=== PATIENT | male | born 1970 | race Caucasian/White ===

== ENCOUNTER 2016-10-25 14:51 | Inpatient (IN) | payer OTHER ==
[~2016-10-25] VITALS: Ht 170.2 cm; Wt 65.2 kg
[2016-10-25] MEDS ORDERED: LEVAQUIN 750MG / 150ML D5W IV STA (15:00)
[2016-10-25] MEDS ORDERED: ALBUT/IPRATROP 3MG/0.5MG NEB 3 ML VIAL INH STA (15:00)
[2016-10-25] MEDS ORDERED: SODIUM CHLORIDE 0.9% 1000ML 1,000 ML IV STA (15:00)
[2016-10-25] MEDS ORDERED: PIPERACILLIN/TAZOBACTAM 4.5 GM/100ML D5W IV STA (15:00)
--- NOTE | 2016-10-25 15:27 | DIAGNOSTIC IMAGING REPORT ---
SINGLE VIEW CHEST CLINICAL HISTORY: Fever. FINDINGS: An AP, portable, upright chest radiograph is obtained. No prior studies are available for comparison at the time of dictation. The examination is degraded by portable technique and patient rotation. A tracheostomy is in place. Trace pneumomediastinum is suspected. The cardiomediastinal silhouette is unremarkable. There are patchy airspace opacities at both lung bases. No large pleural effusion or pneumothorax is seen. The skeletal structures appear osteopenic. The bony thorax is grossly intact. A ventriculoperitoneal shunt catheter is identified. IMPRESSION: 1. A tracheostomy is in place. 2. There are patchy airspace opacities present at both lung bases. Correlate clinically for evidence of pneumonia/aspiration pneumonitis. Radiographic follow-up to resolution is recommended. 3. Pneumomediastinum is suspected.. Electronically signed by: Yadiel May M.D. 10/25/2016 3:26 PM Dictated Date/Time: 10/25/2016 3:24 PM
[2016-10-25 15:39] LABS: HEMATOCRIT 46.2 % (42-52); MEAN CELL VOLUME 89.4 fL (80-100); MEAN CORPUSCULAR HEMOGLOBIN 29.4 pg (25-34); MEAN CORPUSCULAR HGB CONC 32.9 g/dl (32-36); MEAN PLATELET VOLUME 12.5 fL (7.4-10.4); PLATELET COUNT 470 K/uL (130-400); RED BLOOD COUNT 5.17 M/uL (4.7-6.1); WHITE BLOOD COUNT 22.71 K/uL (4.8-10.8)
[2016-10-25 15:56] LABS: ALT/SGPT 319 U/L (12-78); AST/SGOT 62 U/L (15-37); BLOOD UREA NITROGEN 14 mg/dl (7-18); BUN/CREATININE RATIO 17.7 (10-20); CALCIUM 8.9 mg/dl (8.5-10.1); CARBON DIOXIDE 32 mmol/L (21-32); CHLORIDE 102 mmol/L (98-107); GLUCOSE 181 mg/dl (70-99); PARTIAL THROMBOPLASTIN RATIO 1.1; POTASSIUM 4.9 mmol/L (3.5-5.1); PROTHROMBIN TIME (PATIENT) 10.5 SECONDS (9.0-12.0); SODIUM 139 mmol/L (136-145)
[2016-10-25 16:03] LABS: ALKALINE PHOSPHATASE 194 U/L (45-117); CKMB/CK RATIO 2.7 (0-3.0)
[2016-10-25 16:18] LABS: ISTAT ARTERIAL BLOOD GAS HCO3 21 meq/L (19-24); ISTAT ARTERIAL BLOOD GAS PCO2 39 mmHg (35-46); ISTAT ARTERIAL BLOOD GAS PO2 148 mmHg (80-95); ISTAT ARTERIAL BLOOD GAS pH 7.33 (7.35-7.45); ISTAT CARBON DIOXIDE 22 mEq/l (24-31)
[2016-10-25 16:24] LABS: COMPLETE YES; EOSINOPHIL % 0.9 %; LYMPH ABS # 1.82 K/uL (1.2-3.4); MYELOCYTE % 0.9 %; NEUTROPHILS % 50.4 %; VARIANT LYM ABS # 7.63 K/uL; VARIANT LYMPHOCYTE % 33.6 %
--- NOTE | 2016-10-25 16:35 | EMERGENCY ROOM VISIT NOTE ---
History Report prepared by Mily: Manju Song Under the Supervision of: Dr. Waqsa Mccormick D.O. 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 The history is limited secondary to recent subarachnoid hemorrhage and tracheostomy. The patient came to the ED via ambulance from the [facility]. EMS reports that the patient recently had a traumatic head injury with a subarachnoid hemorrhage. 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 He has a tracheostomy in place, but the alf reported that they do not have the supplies to maintain it. EMS reports that the alf has been unable to suction the patient's tracheostomy. He has a history of mucous plugs. The patient also has a PEG tube in place. Source of History: EMS History Limited By: other (recent subarachnoid hemorrhage, tracheostomy) Onset: CHIROPRACTOR ASSISTANT Position: chest Quality: other (respiratory distress) Timing: worsening Review of Systems See HPI for pertinent positives & negatives. ROS limited secondary to recent subarachnoid hemorrhage and tracheostomy. Past Medical & Surgical Medical Problems: (1) History of subarachnoid hemorrhage (2) Sepsis Family History No pertinent family history Social History Housing Status: other (alf) Current/Historical Medications Scheduled Amantadine Hcl (Amantadine Hcl), 100 MG PEG DAILY Chlorhexidine Gluconate (Peridex Oral Soln), 15 ML MT BID Dantrolene Sodium (Dantrium), 25 MG PO DAILY Famotidine (Pepcid), 20 MG PEG DAILY Nutritional Supplements (Boost), 1 CAN PEG Q4 Nystatin (Topical) ([facility]), 1 APPLN TOP DAILY Polyethylene Glycol 3350 (Peg 3350), 1 DOSE PEG DAILY Senna (Senokot), 17.2 TAB PEG BID Scheduled PRN Acetaminophen (Tylenol), 650 MG PEG QID PRN for Pain Magnesium Hydroxide (Milk Of Magnesia), 30 ML PO DAILY PRN for PRN Allergies Coded Allergies: Cephalexin (Unverified Allergy, Unknown, ., 10/25/16) Tomato (Unverified Allergy, Unknown, ., 10/25/16) Physical Exam Vital Signs Date Time Temp Pulse Resp B/P (MAP) Pulse Ox O2 Delivery O2 Flow Rate FiO2 10/25/16 17:15 130 20 120/78 100 Trach Collar 10/25/16 16:16 137 22 129/107 100 Trach Collar 10/25/16 15:32 95 Trach Collar 13.0 10/25/16 15:28 38.2 132 32 125/84 95 Trach Collar 13.0 10/25/16 15:20 102 10/25/16 15:02 144 Physical Exam CONSTITUTIONAL/VITAL SIGNS: Reviewed / noted above. GENERAL: Non-toxic in appearance. INTEGUMENTARY: Warm, dry, and [place]. HEAD: Normocephalic. EYES: without scleral icterus or trauma. ENT/OROPHARYNX: clear and moist, tracheostomy in place. LYMPHADENOPATHY/NECK: Is supple without lymphadenopathy or meningismus. RESPIRATORY: Absent breath sounds in left lung, scattered wheezing right lung, moderate increased work of breathing. CARDIOVASCULAR: Regular rate and rhythm. GI/ABDOMEN: Soft and nontender. Peg tube in place. No organomegaly or pulsatile mass. No rebound or guarding. Normal bowel sounds. EXTREMITIES: Warm and well perfused. BACK: No CVA tenderness. NEUROLOGICAL: Awake, alert, nonverbal, no obvious purposeful movement of the extremities, does not follow commands. PSYCHIATRIC: normal affect. MUSCULOSKELETAL: Normally developed with good muscle tone. Medical Decision & Procedures ER Provider Diagnostic Interpretation: Radiology results as stated below per my review and radiologist interpretation: SINGLE VIEW CHEST FINDINGS: An AP, portable, upright chest radiograph is obtained. No prior studies are available for comparison at the time of dictation. The examination is degraded by portable technique and patient rotation. A tracheostomy is in place. Trace pneumomediastinum is suspected. The cardiomediastinal silhouette is unremarkable. There are patchy airspace opacities at both lung bases. No large pleural effusion or pneumothorax is seen. The skeletal structures appear osteopenic. The bony thorax is grossly intact. A ventriculoperitoneal shunt catheter is identified. IMPRESSION: 1. A tracheostomy is in place. 2. There are patchy airspace opacities present at both lung bases. Correlate clinically for evidence of pneumonia/aspiration pneumonitis. Radiographic follow-up to resolution is recommended. 3. Pneumomediastinum is suspected.. Electronically signed by: Yadiel May M.D. 10/25/2016 3:26 PM Dictated Date/Time: 10/25/2016 3:24 PM Laboratory Results 10/25/16 15:25 Red Blood Count 5.17, Mean Corpuscular Volume 89.4, Mean Corpuscular Hemoglobin 29.4, Mean Corpuscular Hemoglobin Concent 32.9, Mean Platelet Volume 12.5 10/25/16 15:25 Test 10/25/16 15:25 10/25/16 15:47 10/25/16 16:02 White Blood Count 22.71 K/uL (4.8-10.8) Red Blood Count 5.17 M/uL (4.7-6.1) Hemoglobin 15.2 g/dL (14.0-18.0) Hematocrit 46.2 % (42-52) Mean Corpuscular Volume 89.4 fL (80-100) Mean Corpuscular Hemoglobin 29.4 pg (25-34) Mean Corpuscular Hemoglobin Concent 32.9 g/dl (32-36) Platelet Count 470 K/uL (130-400) Mean Platelet Volume 12.5 fL (7.4-10.4) RDW Standard Deviation 47.2 fL (36.4-46.3) RDW Coefficient of Variation 14.4 % (11.5-14.5) Neutrophils % (Manual) 50.4 % Lymphocytes % (Manual) 8.0 % Variant Lymphocytes % (manual) 33.6 % Monocytes % (Manual) 6.2 % Eosinophils % (Manual) 0.9 % Myelocytes % 0.9 % Neutrophils # (Manual) 11.45 K/uL (1.4-6.5) Total Absolute Neutrophils 11.45 K/uL (1.4-6.5) Lymphocytes # (Manual) 1.82 K/uL (1.2-3.4) Absolute Variant Lymphocytes 7.63 K/uL Total Absolute Lymphocytes 9.45 K/uL (1.2-3.4) Monocytes # (Manual) 1.41 K/uL (0.11-0.59) Eosinophils # (Manual) 0.20 K/uL (0-0.5) Myelocytes # 0.20 K/uL (0-0) Red Blood Cell Morphology Unremarkable Prothrombin Time 10.5 SECONDS (9.0-12.0) Prothromb Time International Ratio 1.0 (0.9-1.1) Activated Partial Thromboplast Time 29.6 SECONDS (21.0-31.0) Partial Thromboplastin Ratio 1.1 Anion Gap 5.0 mmol/L (3-11) Estimated GFR () 124.2 Estimated GFR (Non- 107.1 BUN/Creatinine Ratio 17.7 (10-20) Calcium Level 8.9 mg/dl (8.5-10.1) Total Bilirubin 0.8 mg/dl (0.2-1) Direct Bilirubin 0.2 mg/dl (0-0.2) Aspartate Amino Transf (AST/SGOT) 62 U/L (15-37) Alanine Aminotransferase (ALT/SGPT) 319 U/L (12-78) Alkaline Phosphatase 194 U/L (45-117) Total Creatine Kinase 85 U/L (39-308) Creatine Kinase MB 2.3 ng/ml (0.5-3.6) Creatine Kinase MB Ratio 2.7 (0-3.0) Troponin I 0.254 ng/ml (0-0.045) Total Protein 8.6 gm/dl (6.4-8.2) Albumin 3.6 gm/dl (3.4-5.0) Lipase 131 U/L (73-393) Bedside Blood Gas pH (LAB) 7.33 (7.35-7.45) Bedside Blood Gas pCO2 (LAB) 39 mmHg (35-46) Bedside Blood Gas pO2 (LAB) 148 mmHg (80-95) Bedside Blood Gas HCO3 (LAB) 21 meq/L (19-24) Bedside Blood Gas Total CO2 22 mEq/l (24-31) Bedside Blood Gas Base Excess (LAB) -5.0 meq/L (-9-1.8) Bedside Blood Gas O2 Saturation 99.0 % (90-95) Laboratory results as stated above per my review. Medications Administered Medications (Trade) Dose Ordered Sig/Madina Route Start Time Stop Time Status Last Admin Dose Admin Sodium Chloride 1,000 ml @ 999 mls/hr Q1H1M STAT IV 10/25/16 15:00 10/25/16 16:00 DC 10/25/16 16:42 999 MLS/HR Levofloxacin (Levaquin / D5W) 750 mg NOW STAT IV 10/25/16 15:00 10/25/16 15:04 DC 10/25/16 16:43 750 MG Piperacillin Sod/ Tazobactam Sod (Zosyn Iv) 4.5 gm NOW STAT IV 10/25/16 15:00 10/25/16 15:04 DC 10/25/16 16:42 4.5 GM Sodium Chloride 2,000 ml @ 999 mls/hr Q2H1M STAT IV 10/25/16 16:42 10/25/16 18:42 DC 10/25/16 16:49 999 MLS/HR Procedure Fiberoptic tracheostomy evaluation: Because of some clinical findings to suggest tracheostomy stenosis, a fiberoptic scope was placed through the tracheostomy that revealed narrowing of the tracheostomy is self related to mucous accumulation. Distal to the tracheostomy the jayce was visualized and the bilateral bronchus revealed evidence of some whitish substance present with inspiration and exhalation. Tracheostomy removal and replacement This was performed due to challenges with the original tracheostomy as it was becoming clogged with mucus. A 4.0 Shiley was placed. This is similar in size to the original tracheostomy tube although a different brand. This changeover occurred without difficulty. ABG analysis: Reveals a slight metabolic acidosis. Ventilation is adequate. Oxygenation is adequate on supplemental oxygenation. ECG Indication: SOB/dyspnea Rate (beats per minute): 156 Rhythm: sinus tachycardia Findings: no acute ischemic change, no ectopy ED Course 1454: Previous medical records were reviewed. The patient was evaluated in room C5. A complete history and physical examination was performed. 1500: Ordered Zosyn 4.5 gm IV, Levofloxacin 750 mg IV, DuoNeb 3 ml INH, Sodium Chloride 1000 ml @ 999 mls/hr IV 1510: The nurse informed me that the patient was evaluated by the respiratory team. The respiratory team is unable to suction the patient's trach. He is going to be moved to B1 in case he needs ventilation. 1526: I performed a fiberoptic tracheostomy evaluation and a tracheostomy replacement and removal at this time. Please refer to the procedure note above for further details. 1547: I reassessed the patient at this time. He is resting comfortably. 1630: On reevaluation, the patient is resting comfortably. The patient will be evaluated for further management and care. 1631: Discussed the patient's case with Dr. Tha SIDDIQUI. The patient will be evaluated for further treatment and disposition. Medical Decision The differential was considered includes acute myocardial infarction, acute coronary syndrome, myocarditis, pericarditis, pericardial effusions/tamponade, esophageal perforation, pulmonary embolism, pneumonia, pneumothorax, cardiomyopathy, congestive heart, anemia , COPD/asthma exacerbation. This is a 46-year-old male who presents to the ED with a chief complaint of shortness of breath. The patient has a history of subarachnoid hemorrhage in the past. He has a tracheostomy as well as a PEG tube. 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 The patient was sent from [facility]. They apparently received him to their facility couple of days ago. The patient's vital signs reveal temperature of 38.2 axillary. There is evidence of hypoxia without supplemental oxygen with oxygen saturations in the 80s. The patient appears to be having moderate respiratory distress on his initial evaluation. His left lung. Diminished compared to the right. Chest x- ray reveals bilateral pneumonia. Fiberoptic evaluation of his tracheostomy reveals narrowing of the tracheostomy tube itself. There is a moderate amount of buildup on the side mckeon that are mostly occluding the tracheostomy. This was replaced with a similar sized tube. The trachea otherwise appeared to be normal distal to the tracheostomy tube. There is some purulent discharge from the bilateral bronchi in the lower aspects that was visible on fiberoptic assessment of the trachea. White blood cell count is 22,000. There is a slight elevation of the transaminase. ABG reveals a metabolic acidosis with adequate ventilation and oxygenation. Troponin was a little elevated. Lactate was elevated. The patient was treated with IV fluids, DuoNeb treatment as well as IV Levaquin and IV Zosyn. EMS reported that the initial heart rate upon their arrival was in the 90-100 range. They treated the patient with DuoNeb nebulizers and the patient was given a nebulizer here as well. His EKG shows a sinus tachycardia rate of 155. His heart rate is improving with time during his ED stay. I suspect his tachycardia was somewhat related to the albuterol. The patient was seen by the hospitalist service for further inpatient evaluation and care. The patient was given more than 30cc/kg of NSS in the first 3 hours of his stay. Consults Time Called: 1627 Consulting Physician: Dr. Tha SIDDIQUI Returned Call: 1631 Discussed the patient's case with Dr. Tha SIDDIQUI. The patient will be evaluated for further treatment and disposition. Impression Primary Impression: Pneumonia Additional Impressions: Fever Hypoxia Elevated troponin Critical Care I have personally spent greater than 35 minutes of critical care time in the direct management of this patient. This includes bedside care, interpretation of diagnostic studies, and testing, discussion with consultants, patient, and family members, and other required patient management activities. This 35 minutes is in excess of all separately billable procedures. Scribe Attestation The scribe's documentation has been prepared under my direction and personally reviewed by me in its entirety. I confirm that the note above accurately reflects all work, treatment, procedures, and medical decision making performed by me. Departure Information Dispostion Being Evaluated By Hospitalist Patient Instructions Asthma - [facility], COPD - [facility], Croup - [facility], My [facility] Problem Qualifiers Primary Impression: Pneumonia Pneumonia type: due to unspecified organism Laterality: bilateral Lung location: lower lobe of lung Qualified Codes: J18.9 - Pneumonia, unspecified organism Additional Impressions: Fever Fever type: unspecified Qualified Codes: R50.9 - Fever, unspecified
[2016-10-25] MEDS ORDERED: SODIUM CHLORIDE 0.9% 1000ML 2,000 ML IV STA (16:42)
[2016-10-25] MEDS ORDERED: AMAN100C18 PEG (16:59)
[2016-10-25] MEDS ORDERED: PRDXLUD MT (17:01)
[2016-10-25] MEDS ORDERED: DANT25CA PO (17:02)
[2016-10-25] MEDS ORDERED: FAMO20TA11 PEG (17:03)
[2016-10-25] MEDS ORDERED: POLYPOW PEG (17:05)
[2016-10-25] MEDS ORDERED: SENN-61 PEG (17:06)
[2016-10-25] MEDS ORDERED: NYST100016 TOP (17:13)
[2016-10-25] MEDS ORDERED: NUTR-7 PEG (17:13)
[2016-10-25] MEDS ORDERED: MOML PO (17:13)
[2016-10-25] MEDS ORDERED: ACET-1175 PEG (17:13)
[2016-10-25] MEDS ORDERED: ONDANSETRON INJ 2 MG/ML 2 ML VIAL IV PRN (17:30)
[2016-10-25] MEDS ORDERED: ACETAMINOPHEN 325 MG TAB PO PRN (17:30)
[2016-10-25 17:34] VITALS: O2SAT 100; Ht 170.2 cm; Wt 65.2 kg
--- NOTE | 2016-10-25 17:56 | History and Physical ---
History & Physical Date & Time of Service: Oct 25, 2016 at 17:42 Chief Complaint: Inability To Suction Trach Primary Care Physician: Mathew VALERA History of Present Illness Source: patient Pt is a 46-year old male who [facility] the ER from [facility] for worsening sob/respiratory distress that was noticed this afternoon. Hx is limited due to hx of subarachnoid hemorrhage and tracheostomy. Pt is from [facility] and has significant cognitive impairment. Pt is nonverbal and has tracheostomy in place for unknown reason as well. From EMS records, halfway has been unable to provide adequate trach care including suctioning. Pt has a history of mucous plugs and also has a PEG tube in place. Upon interview, pt is follows commands with right hand, able to squeeze hand and give thumbs up. Pt not able to utilize left side of body. Past Medical/Surgical History Medical Problems: (1) History of subarachnoid hemorrhage Status: Chronic Family History No pertinent family history Social History Smoking Status: Unknown if Ever Smoked Allergies Coded Allergies: Cephalexin (Unverified Allergy, Unknown, ., 10/25/16) Tomato (Unverified Allergy, Unknown, ., 10/25/16) Home Medications Scheduled Amantadine Hcl (Amantadine Hcl), 100 MG PEG DAILY Chlorhexidine Gluconate (Peridex Oral Soln), 15 ML MT BID Dantrolene Sodium (Dantrium), 25 MG PO DAILY Famotidine (Pepcid), 20 MG PEG DAILY Nutritional Supplements (Boost), 1 CAN PEG Q4 Nystatin (Topical) (Nyamyc), 1 APPLN TOP DAILY Polyethylene Glycol 3350 (Peg 3350), 1 DOSE PEG DAILY Senna (Senokot), 17.2 TAB PEG BID Scheduled PRN Acetaminophen (Tylenol), 650 MG PEG QID PRN for Pain Magnesium Hydroxide (Milk Of Magnesia), 30 ML PO DAILY PRN for PRN Review of Systems Unable to obtain due to cognitive decline Physical Exam Vital Signs Date Time Temp Pulse Resp B/P (MAP) Pulse Ox O2 Delivery O2 Flow Rate FiO2 10/25/16 17:40 36.6 10/25/16 17:15 130 20 120/78 100 Trach Collar 10/25/16 16:16 137 22 129/107 100 Trach Collar 10/25/16 15:32 95 Trach Collar 13.0 10/25/16 15:28 38.2 132 32 125/84 95 Trach Collar 13.0 10/25/16 15:20 102 10/25/16 15:02 144 General Appearance: WD/WN, no apparent distress Head: normocephalic, atraumatic Eyes: normal inspection, PERRL, EOMI, sclerae normal Neck: supple, thyroid normal, + pertinent finding (trach in place) Respiratory/Chest: chest non-tender, no respiratory distress, + decreased breath sounds, + wheezing Cardiovascular: no edema, no gallop, no JVD, + tachycardia Abdomen/GI: normal bowel sounds, non tender, soft, no organomegaly Back: normal inspection, no CVA tenderness, no muscle spasm Neurologic/Psych: alert, normal mood/affect, + motor weakness (left sided weakness) Skin: normal color, warm/dry Diagnostics Laboratory Results Results Past 24 Hours Test 10/25/16 15:25 10/25/16 16:00 10/25/16 16:02 Range/Units White Blood Count 22.71 4.8-10.8 K/uL Red Blood Count 5.17 4.7-6.1 M/uL Hemoglobin 15.2 14.0-18.0 g/dL Hematocrit 46.2 42-52 % Mean Corpuscular Volume 89.4 80-100 fL Mean Corpuscular Hemoglobin 29.4 25-34 pg Mean Corpuscular Hemoglobin Concent 32.9 32-36 g/dl Platelet Count 470 130-400 K/uL Mean Platelet Volume 12.5 7.4-10.4 fL RDW Standard Deviation 47.2 36.4-46.3 fL RDW Coefficient of Variation 14.4 11.5-14.5 % Neutrophils % (Manual) 50.4 % Lymphocytes % (Manual) 8.0 % Variant Lymphocytes % (manual) 33.6 % Monocytes % (Manual) 6.2 % Eosinophils % (Manual) 0.9 % Myelocytes % 0.9 % Neutrophils # (Manual) 11.45 1.4-6.5 K/uL Total Absolute Neutrophils 11.45 1.4-6.5 K/uL Lymphocytes # (Manual) 1.82 1.2-3.4 K/uL Absolute Variant Lymphocytes 7.63 K/uL Total Absolute Lymphocytes 9.45 1.2-3.4 K/uL Monocytes # (Manual) 1.41 0.11-0.59 K/uL Eosinophils # (Manual) 0.20 0-0.5 K/uL Myelocytes # 0.20 0-0 K/uL Red Blood Cell Morphology Unremarkable Prothrombin Time 10.5 9.0-12.0 SECONDS Prothromb Time International Ratio 1.0 0.9-1.1 Activated Partial Thromboplast Time 29.6 21.0-31.0 SECONDS Partial Thromboplastin Ratio 1.1 Sodium Level 139 136-145 mmol/L Potassium Level 4.9 3.5-5.1 mmol/L Chloride Level 102 98-107 mmol/L Carbon Dioxide Level 32 21-32 mmol/L Anion Gap 5.0 3-11 mmol/L Blood Urea Nitrogen 14 7-18 mg/dl Creatinine 0.80 0.60-1.40 mg/dl Estimated GFR () 124.2 Estimated GFR (Non- 107.1 BUN/Creatinine Ratio 17.7 10-20 Random Glucose 181 70-99 mg/dl Calcium Level 8.9 8.5-10.1 mg/dl Total Bilirubin 0.8 0.2-1 mg/dl Direct Bilirubin 0.2 0-0.2 mg/dl Aspartate Amino Transf (AST/SGOT) 62 15-37 U/L Alanine Aminotransferase (ALT/SGPT) 319 12-78 U/L Alkaline Phosphatase 194 45-117 U/L Total Creatine Kinase 85 39-308 U/L Creatine Kinase MB 2.3 0.5-3.6 ng/ml Creatine Kinase MB Ratio 2.7 0-3.0 Troponin I 0.254 0-0.045 ng/ml Total Protein 8.6 6.4-8.2 gm/dl Albumin 3.6 3.4-5.0 gm/dl Lipase 131 73-393 U/L Lactic Acid Level 6.5 0.4-2.0 mmol/L Bedside Blood Gas pH (LAB) 7.33 7.35-7.45 Bedside Blood Gas pCO2 (LAB) 39 35-46 mmHg Bedside Blood Gas pO2 (LAB) 148 80-95 mmHg Bedside Blood Gas HCO3 (LAB) 21 19-24 meq/L Bedside Blood Gas Total CO2 22 24-31 mEq/l Bedside Blood Gas Base Excess (LAB) -5.0 -9-1.8 meq/L Bedside Blood Gas O2 Saturation 99.0 90-95 % Microbiology Results 10/25/16 Blood Culture, Received Pending 10/25/16 Blood Culture, Received Pending Impression Assessment and Plan Pt is a 46 yo male with hx of SAH, tracheostomy and PEG tube who is nonverba; with significant cognitive decline who presents with worsening sob and noted to be in sepsis Sepsis likely from pneumonia as evidenced by CXR. Pt currently on trach collar. Will utilize zosyn, levaquin and vanc and obtain sputum and blood cx. Inc lactate and WBC and febrile in ER. Will utilize xopenex/atrovent due to tachycardia. Will consult pulm for further recs. PEG tube care, consult [employer], boost via PEG TUBE, will need to obtain halfway records Chronic spasticity cont dantrolene Elev trop likely from sepsis, cont to trend, no ischemic changes on EKG Hx of SAH stable Pt is FULL CODE VTE Prophylaxis VTE Risk Assessment Done? Y/N: Yes Risk Level: Moderate
[2016-10-25] MEDS ORDERED: MAGNESIUM HYDROXIDE SUSP 30 ML UDC PO PRN (18:00)
[2016-10-25] MEDS ORDERED: ACETAMINOPHEN SOLN 650MG/20.3 ML UDC PEG PRN (18:00)
[2016-10-25 18:53] VITALS: BP 126/75; PULSE 137; TEMP 37.3; O2SAT 99
[2016-10-25] MEDS ORDERED: SODIUM CHLORIDE 0.9% 1000ML 1,000 ML IV SCH (19:30)
[2016-10-25 19:40] VITALS: BP 118/75; PULSE 122; TEMP 37.2; O2SAT 99
[2016-10-25] MEDS: PATIENT'S HEIGHT AND/OR WEIGHT NEEDED SCH ×2 (19:45→23:45)
[2016-10-25] MEDS ORDERED: VANCOMYCIN CONSULT ACTIVE PRN (19:45)
[2016-10-25] MEDS ORDERED: VANCOMYCIN INJ 1,650 MG in SODIUM CHLORIDE 0.9% 500ML 500 ML IV SCH (20:00)
[2016-10-25] MEDS: CHLORHEXIDINE GLUCONATE 0.12% 15 ML UDP MT SCH (20:59)
[2016-10-25] MEDS ORDERED: LEVALBUTEROL/IPRATROPIUM NEB INH SCH (21:00)
[2016-10-25] MEDS: IPRATROPIUM BROMIDE NEB SOLN 0.02% 2.5 ML VIAL INH SCH (21:00)
[2016-10-25] MEDS: LEVALBUTEROL 1.25MG/0.5ML NEB INH SCH (21:00)
[2016-10-25] MEDS: BOOST VANILLA PEG SCH ×4 (21:09→23:48)
[2016-10-25] MEDS: HEPARIN SOD 5000 UNIT/0.5 ML CARP SQ SCH (21:16)
--- NOTE | 2016-10-25 21:29 | Pharmacy Progress Note ---
Pharmacy Antibiotic Consult Date of Service: Oct 25, 2016. Pharmacy Dosing Scope Pharmacy is consulted to initiate vancomycin IV dosing therapy, order appropriate labs and adjust drug dose/frequency. Subjective The patient is a 46 year old male admitted on Oct 25, 2016 at 17:19 Pt is a 46 yo male with hx of SAH, tracheostomy and PEG tube who is nonverbal; with significant cognitive decline who presents with worsening sob and noted to be in sepsis. Sepsis likely from pneumonia as evidenced by CXR. Pt currently on trach collar. Objective Weight (Kilograms): 65.800 Lab Results (24hrs): Test 10/25/16 15:25 10/25/16 15:47 10/25/16 16:00 10/25/16 16:02 White Blood Count 22.71 K/uL (4.8-10.8) Red Blood Count 5.17 M/uL (4.7-6.1) Hemoglobin 15.2 g/dL (14.0-18.0) Hematocrit 46.2 % (42-52) Mean Corpuscular Volume 89.4 fL (80-100) Mean Corpuscular Hemoglobin 29.4 pg (25-34) Mean Corpuscular Hemoglobin Concent 32.9 g/dl (32-36) Platelet Count 470 K/uL (130-400) Mean Platelet Volume 12.5 fL (7.4-10.4) RDW Standard Deviation 47.2 fL (36.4-46.3) RDW Coefficient of Variation 14.4 % (11.5-14.5) Neutrophils % (Manual) 50.4 % Lymphocytes % (Manual) 8.0 % Variant Lymphocytes % (manual) 33.6 % Monocytes % (Manual) 6.2 % Eosinophils % (Manual) 0.9 % Myelocytes % 0.9 % Neutrophils # (Manual) 11.45 K/uL (1.4-6.5) Total Absolute Neutrophils 11.45 K/uL (1.4-6.5) Lymphocytes # (Manual) 1.82 K/uL (1.2-3.4) Absolute Variant Lymphocytes 7.63 K/uL Total Absolute Lymphocytes 9.45 K/uL (1.2-3.4) Monocytes # (Manual) 1.41 K/uL (0.11-0.59) Eosinophils # (Manual) 0.20 K/uL (0-0.5) Myelocytes # 0.20 K/uL (0-0) Red Blood Cell Morphology Unremarkable Prothrombin Time 10.5 SECONDS (9.0-12.0) Prothromb Time International Ratio 1.0 (0.9-1.1) Activated Partial Thromboplast Time 29.6 SECONDS (21.0-31.0) Partial Thromboplastin Ratio 1.1 Sodium Level 139 mmol/L (136-145) Potassium Level 4.9 mmol/L (3.5-5.1) Chloride Level 102 mmol/L (98-107) Carbon Dioxide Level 32 mmol/L (21-32) Anion Gap 5.0 mmol/L (3-11) Blood Urea Nitrogen 14 mg/dl (7-18) Creatinine 0.80 mg/dl (0.60-1.40) Estimated GFR () 124.2 Estimated GFR (Non- 107.1 BUN/Creatinine Ratio 17.7 (10-20) Random Glucose 181 mg/dl (70-99) Calcium Level 8.9 mg/dl (8.5-10.1) Total Bilirubin 0.8 mg/dl (0.2-1) Direct Bilirubin 0.2 mg/dl (0-0.2) Aspartate Amino Transf (AST/SGOT) 62 U/L (15-37) Alanine Aminotransferase (ALT/SGPT) 319 U/L (12-78) Alkaline Phosphatase 194 U/L (45-117) Total Creatine Kinase 85 U/L (39-308) Creatine Kinase MB 2.3 ng/ml (0.5-3.6) Creatine Kinase MB Ratio 2.7 (0-3.0) Troponin I 0.254 ng/ml (0-0.045) Total Protein 8.6 gm/dl (6.4-8.2) Albumin 3.6 gm/dl (3.4-5.0) Lipase 131 U/L (73-393) Procalcitonin 0.08 ng/ml (0-0.5) Lactic Acid Level 6.5 mmol/L (0.4-2.0) Bedside Blood Gas pH (LAB) 7.33 (7.35-7.45) Bedside Blood Gas pCO2 (LAB) 39 mmHg (35-46) Bedside Blood Gas pO2 (LAB) 148 mmHg (80-95) Bedside Blood Gas HCO3 (LAB) 21 meq/L (19-24) Bedside Blood Gas Total CO2 22 mEq/l (24-31) Bedside Blood Gas Base Excess (LAB) -5.0 meq/L (-9-1.8) Bedside Blood Gas O2 Saturation 99.0 % (90-95) Test 10/25/16 19:18 Lactic Acid Level 1.3 mmol/L (0.4-2.0) Micro Results: Blood cx x 2 are pending/ Recent Pertinent Medications Zosyn 4.5gm IV x 1 and Levaquin 750mg IV x1 in ER. Assessment & Plan Pt is a 46 yo male with hx of SAH, tracheostomy and PEG tube who is nonverbal; with significant cognitive decline who presents with worsening sob and noted to be in sepsis. Sepsis likely from pneumonia as evidenced by CXR. Pt currently on trach collar. Vancomycin: Loading dose: 1650 mg IV X 1 dose (~25mg/kg) then: 1100 mg IV every 10 hours. Goal trough level estimate: between 15 - 20 mcg/mL. Peak and trough or random level has been ordered for: 10/27 prior to 0200 dose. Pt also ordered Levaquin 750mg IV q 24 hrs. Pharmacy will continue to follow and will adjust dose/frequency as necessary. Thank you
[2016-10-25 23:25] VITALS: BP 129/88; PULSE 117; TEMP 37.6; O2SAT 100
[2016-10-25] MEDS ORDERED: METOPROLOL TARTRATE 25 MG TAB PO STA (23:27)
[2016-10-25] MEDS ORDERED: ASPIRIN 81 MG CHEW PO STA (23:27)
[2016-10-25] MEDS: SODIUM CHLORIDE 0.9% 1000ML 1,000 ML IV SCH (23:48)
[2016-10-25 23:59] VITALS: O2SAT 100
[2016-10-26] VITALS (13 sets, daily range): BP systolic 101–111; BP diastolic 59–73; PULSE 67–115; TEMP 36.6–37.7; O2SAT 98–100
[2016-10-26] MEDS: PATIENT'S HEIGHT AND/OR WEIGHT NEEDED SCH ×2 (01:13→03:06)
[2016-10-26] MEDS: IPRATROPIUM BROMIDE NEB SOLN 0.02% 2.5 ML VIAL INH SCH ×4 (01:42→19:14)
[2016-10-26] MEDS: LEVALBUTEROL 1.25MG/0.5ML NEB INH SCH ×4 (01:42→19:14)
[2016-10-26] MEDS: BOOST VANILLA PEG SCH ×8 (03:32→21:29)
[2016-10-26] MEDS: VANCOMYCIN INJ 1,100 MG in SODIUM CHLORIDE 0.9% 250ML 250 ML IV SCH ×2 (05:21→15:35)
[2016-10-26] MEDS: HEPARIN SOD 5000 UNIT/0.5 ML CARP SQ SCH ×3 (05:25→22:00)
[2016-10-26 06:59] LABS: BASO % 0.3 %; BASO ABS # 0.04 K/uL (0-0.2); COMPLETE YES; EOS % 0.7 %; HEMATOCRIT 36.9 % (42-52); IG% 0.2 %; LYMPH % 18.7 %; LYMPH ABS # 2.26 K/uL (1.2-3.4); MEAN CELL VOLUME 87.6 fL (80-100); MEAN CORPUSCULAR HEMOGLOBIN 28.3 pg (25-34); MEAN CORPUSCULAR HGB CONC 32.2 g/dl (32-36); MEAN PLATELET VOLUME 11.9 fL (7.4-10.4); MONO % 11.4 %; NEUT % 68.7 %; PLATELET COUNT 256 K/uL (130-400); RED BLOOD COUNT 4.21 M/uL (4.7-6.1); WHITE BLOOD COUNT 12.08 K/uL (4.8-10.8)
[2016-10-26 07:04] LABS: ALT/SGPT 200 U/L (12-78); AST/SGOT 45 U/L (15-37); BLOOD UREA NITROGEN 10 mg/dl (7-18); BUN/CREATININE RATIO 20.9 (10-20); CARBON DIOXIDE 25 mmol/L (21-32); CHLORIDE 109 mmol/L (98-107); CREATININE 0.47 mg/dl (0.60-1.40); GLUCOSE 94 mg/dl (70-99); POTASSIUM 4.1 mmol/L (3.5-5.1); SODIUM 143 mmol/L (136-145)
[2016-10-26 07:14] LABS: ALB/GLOB RATIO 0.7 (0.9-2); ALKALINE PHOSPHATASE 130 U/L (45-117)
[2016-10-26] MEDS: FAMOTIDINE 20 MG TAB OG SCH (07:40)
[2016-10-26] MEDS: METOPROLOL TARTRATE 25 MG TAB PO SCH ×2 (07:40→21:16)
[2016-10-26] MEDS: CHLORHEXIDINE GLUCONATE 0.12% 15 ML UDP MT SCH ×2 (07:40→21:17)
[2016-10-26] MEDS: ASPIRIN 81 MG CHEW PO SCH (07:40)
[2016-10-26] MEDS: AMANTADINE HCL 100 MG CAP PO SCH (07:41)
[2016-10-26] MEDS: DANTROLENE SODIUM 25 MG CAP PO SCH (07:41)
[2016-10-26] MEDS: SODIUM CHLORIDE 0.9% 1000ML 1,000 ML IV SCH ×3 (07:42→23:06)
[2016-10-26] MEDS: POLYETHYLENE (MIRALAX) 17 GM PACK PEG SCH (07:42)
[2016-10-26] MEDS ORDERED: BOOST VANILLA PO SCH ×2 (11:00)
--- NOTE | 2016-10-26 12:21 | Pulmonary Consultation ---
History General Date of Service: Oct 26, 2016. Stated Complaint: Sepsis HPI The patient is a 46 year old male who presents to [facility] with complaints of Sepsis. The patient's primary care provider is Mathew VALERA. Patient is from skilled nursing, accompanied by 2 police officers They do not know anything about his medical history Patient is non verbal and cannot provide history By H&P it appears that he was sent to ER for proper trach care His trach was replaced in the ER with no:4 cuffed trach Review of Systems unable to obtain Past Medical History Past Medical History: h/o SAH s/p trach and PEG Family History No pertinent family history unable to obtain Social History skilled nursing inmate Smoking Status: Unknown if Ever Smoked Allergies Coded Allergies: Cephalexin (Unverified Allergy, Unknown, ., 10/25/16) Tomato (Unverified Allergy, Unknown, ., 10/25/16) Current Medications Reported Home Medications Medications Dose Route/Sig Max Daily Dose Days Date Category Dose Instructions Boost (Nutritional Supplements) 1 Liq Liq 1 Can PEG Q4 10/25/16 Reported GIVEN THRU A PUMP AT [facility] (Nystatin (Topical)) 100,000 Unit/Gm Pow 1 Appln TOP DAILY 10/25/16 Reported Milk Of Magnesia (Magnesium Hydroxide) 30 Ml Susp 30 Ml PO DAILY PRN 10/25/16 Reported Tylenol (Acetaminophen) 325 Mg Tab 650 Mg PEG QID PRN 10/25/16 Reported Senokot (Senna) 8.6 Mg Tab 17.2 Tab PEG BID 10/25/16 Reported Peg 3350 (Polyethylene Glycol 3350) 1 Pow Pow 1 Dose PEG DAILY 10/25/16 Reported Pepcid (Famotidine) 20 Mg Tab 20 Mg PEG DAILY 10/25/16 Reported Dantrium (Dantrolene Sodium) 25 Mg Cap 25 Mg PO DAILY 10/25/16 Reported Peridex Oral Soln (Chlorhexidine Gluconate) 480 Ml Soln 15 Ml MT BID 10/25/16 Reported Amantadine Hcl (Amantadine HCl) 100 Mg Cap 100 Mg PEG DAILY 10/25/16 Reported Physical Physical Exam Vital Signs: Date Time Temp Pulse Resp B/P (MAP) Pulse Ox O2 Delivery O2 Flow Rate FiO2 10/26/16 12:07 36.6 96 20 101/69 (80) 100 Trach Collar 10/26/16 08:00 98 Humidified Air 8.0 40 Trach Collar 10/26/16 07:25 67 20 100 Trach Collar 9.0 10/26/16 07:13 37.0 107 19 104/69 (81) 100 Trach Collar 8.0 10/26/16 04:00 98 Trach Collar 40 10/26/16 02:52 37.7 103 21 104/69 (81) 98 Trach Collar 8.0 40 10/26/16 01:42 96 20 100 Trach Collar 9.0 10/25/16 23:59 100 Trach Collar 40 10/25/16 23:25 37.6 117 20 129/88 (102) 100 Trach Collar 40 10/25/16 19:40 37.2 122 26 118/75 (89) 99 Trach Collar 10.0 40 10/25/16 18:53 37.3 137 24 126/75 (92) 99 Trach Collar 35 10/25/16 18:33 100 10/25/16 18:08 130 22 100 Trach Collar 10/25/16 17:40 36.6 10/25/16 17:34 100 Trach Collar 13.0 10/25/16 17:15 130 20 120/78 100 Trach Collar 10/25/16 16:16 137 22 129/107 100 Trach Collar 10/25/16 15:32 95 Trach Collar 13.0 10/25/16 15:28 38.2 132 32 125/84 95 Trach Collar 13.0 10/25/16 15:20 102 10/25/16 15:02 144 thin built chronically ill appearing Eyes: PERRLA, NO DISCHARGE ENT: NORMAL NASAL EXAM, NORMAL MOUTH EXAM Neck: other (trach) Respiratory: rhonchi Cardiovasular: REGULAR RATE/RHYTHM, NORMAL S1S2, NO MURMUR Abdomen: NORMAL BOWEL SOUNDS, NO REBOUND, other (peg) Upper Extremities: other (contracted left upper arm and leg) Lower Extremities: other (contracted left lower leg) Neuro: other (left side paralyzed, s/p trach and peg, blinks eyes and follows simple commands) Diagnostics Labs Results Past 24 Hours Test 10/25/16 15:25 10/25/16 15:47 10/25/16 16:00 10/25/16 16:02 Range/Units White Blood Count 22.71 4.8-10.8 K/uL Red Blood Count 5.17 4.7-6.1 M/uL Hemoglobin 15.2 14.0-18.0 g/dL Hematocrit 46.2 42-52 % Mean Corpuscular Volume 89.4 80-100 fL Mean Corpuscular Hemoglobin 29.4 25-34 pg Mean Corpuscular Hemoglobin Concent 32.9 32-36 g/dl Platelet Count 470 130-400 K/uL Mean Platelet Volume 12.5 7.4-10.4 fL RDW Standard Deviation 47.2 36.4-46.3 fL RDW Coefficient of Variation 14.4 11.5-14.5 % Neutrophils % (Manual) 50.4 % Lymphocytes % (Manual) 8.0 % Variant Lymphocytes % (manual) 33.6 % Monocytes % (Manual) 6.2 % Eosinophils % (Manual) 0.9 % Myelocytes % 0.9 % Neutrophils # (Manual) 11.45 1.4-6.5 K/uL Total Absolute Neutrophils 11.45 1.4-6.5 K/uL Lymphocytes # (Manual) 1.82 1.2-3.4 K/uL Absolute Variant Lymphocytes 7.63 K/uL Total Absolute Lymphocytes 9.45 1.2-3.4 K/uL Monocytes # (Manual) 1.41 0.11-0.59 K/uL Eosinophils # (Manual) 0.20 0-0.5 K/uL Myelocytes # 0.20 0-0 K/uL Red Blood Cell Morphology Unremarkable Prothrombin Time 10.5 9.0-12.0 SECONDS Prothromb Time International Ratio 1.0 0.9-1.1 Activated Partial Thromboplast Time 29.6 21.0-31.0 SECONDS Partial Thromboplastin Ratio 1.1 Sodium Level 139 136-145 mmol/L Potassium Level 4.9 3.5-5.1 mmol/L Chloride Level 102 98-107 mmol/L Carbon Dioxide Level 32 21-32 mmol/L Anion Gap 5.0 3-11 mmol/L Blood Urea Nitrogen 14 7-18 mg/dl Creatinine 0.80 0.60-1.40 mg/dl Estimated GFR () 124.2 Estimated GFR (Non- 107.1 BUN/Creatinine Ratio 17.7 10-20 Random Glucose 181 70-99 mg/dl Calcium Level 8.9 8.5-10.1 mg/dl Total Bilirubin 0.8 0.2-1 mg/dl Direct Bilirubin 0.2 0-0.2 mg/dl Aspartate Amino Transf (AST/SGOT) 62 15-37 U/L Alanine Aminotransferase (ALT/SGPT) 319 12-78 U/L Alkaline Phosphatase 194 45-117 U/L Total Creatine Kinase 85 39-308 U/L Creatine Kinase MB 2.3 0.5-3.6 ng/ml Creatine Kinase MB Ratio 2.7 0-3.0 Troponin I 0.254 0-0.045 ng/ml Total Protein 8.6 6.4-8.2 gm/dl Albumin 3.6 3.4-5.0 gm/dl Lipase 131 73-393 U/L Procalcitonin 0.08 0-0.5 ng/ml Lactic Acid Level 6.5 0.4-2.0 mmol/L Bedside Blood Gas pH (LAB) 7.33 7.35-7.45 Bedside Blood Gas pCO2 (LAB) 39 35-46 mmHg Bedside Blood Gas pO2 (LAB) 148 80-95 mmHg Bedside Blood Gas HCO3 (LAB) 21 19-24 meq/L Bedside Blood Gas Total CO2 22 24-31 mEq/l Bedside Blood Gas Base Excess (LAB) -5.0 -9-1.8 meq/L Bedside Blood Gas O2 Saturation 99.0 90-95 % Test 10/25/16 19:18 10/25/16 22:01 10/26/16 06:12 Range/Units Lactic Acid Level 1.3 0.4-2.0 mmol/L Troponin I 4.370 3.690 0-0.045 ng/ml White Blood Count 12.08 4.8-10.8 K/uL Red Blood Count 4.21 4.7-6.1 M/uL Hemoglobin 11.9 14.0-18.0 g/dL Hematocrit 36.9 42-52 % Mean Corpuscular Volume 87.6 80-100 fL Mean Corpuscular Hemoglobin 28.3 25-34 pg Mean Corpuscular Hemoglobin Concent 32.2 32-36 g/dl Platelet Count 256 130-400 K/uL Mean Platelet Volume 11.9 7.4-10.4 fL Neutrophils (%) (Auto) 68.7 % Lymphocytes (%) (Auto) 18.7 % Monocytes (%) (Auto) 11.4 % Eosinophils (%) (Auto) 0.7 % Basophils (%) (Auto) 0.3 % Neutrophils # (Auto) 8.29 1.4-6.5 K/uL Lymphocytes # (Auto) 2.26 1.2-3.4 K/uL Monocytes # (Auto) 1.38 0.11-0.59 K/uL Eosinophils # (Auto) 0.09 0-0.5 K/uL Basophils # (Auto) 0.04 0-0.2 K/uL RDW Standard Deviation 47.1 36.4-46.3 fL RDW Coefficient of Variation 14.7 11.5-14.5 % Immature Granulocyte % (Auto) 0.2 % Immature Granulocyte # (Auto) 0.02 0.00-0.02 K/uL Sodium Level 143 136-145 mmol/L Potassium Level 4.1 3.5-5.1 mmol/L Chloride Level 109 98-107 mmol/L Carbon Dioxide Level 25 21-32 mmol/L Anion Gap 9.0 3-11 mmol/L Blood Urea Nitrogen 10 7-18 mg/dl Creatinine 0.47 0.60-1.40 mg/dl Est Creatinine Clear Calc Drug Dose 183.7 ml/min Estimated GFR () > 150.0 Estimated GFR (Non- 133.3 BUN/Creatinine Ratio 20.9 10-20 Random Glucose 94 70-99 mg/dl Calcium Level 8.0 8.5-10.1 mg/dl Total Bilirubin 1.0 0.2-1 mg/dl Aspartate Amino Transf (AST/SGOT) 45 15-37 U/L Alanine Aminotransferase (ALT/SGPT) 200 12-78 U/L Alkaline Phosphatase 130 45-117 U/L Total Protein 6.3 6.4-8.2 gm/dl Albumin 2.6 3.4-5.0 gm/dl Globulin 3.7 2.5-4.0 gm/dl Albumin/Globulin Ratio 0.7 0.9-2 Microbiology Results 10/25/16 Blood Culture, Received Pending 10/25/16 Blood Culture, Received Pending 10/25/16 MRSA DNA Surveillance Screen - Final, Complete Specimen Negative for MRSA by DNA Probe 10/25/16 Gram Stain - Final, Resulted 10/25/16 Sputum Culture - Preliminary, Resulted PIN-POINT GROWTH PRESENT, REINCUBATING. Impression Assessment and Plan (1) Pneumonia Status: Acute Assessment & Plan: f/u sputum for culture aspiration precautions MRSA swab -ve d/c vanco continue zosyn and levaquin (2) History of subarachnoid hemorrhage Status: Chronic (3) Hypoxia Status: Acute Assessment & Plan: trach needs to be deflated trach care q 4 hrs if trach ges plugging up too frequently, then recommend to switch to no: 6 atleast o2 supplementation janae sats 90% and above (4) Sepsis continue present abx sepsis due to pneumonia
[2016-10-26] MEDS: LEVOFLOXACIN / D5W 750 MG in PREMIXED IN D5W 150 ML IV SCH (15:35)
--- NOTE | 2016-10-26 15:37 | Progress Note ---
Subjective Date of Service: Oct 26, 2016. Subjective Pt evaluation today including: conversation w/ patient, physical exam, lab review, review of studies, conversation w/ corporate consultant, review of inpatient medication list Pain: denies pain PO Intake: PEG tube, NPO Voiding: no voiding problems no issues since admission, improving slowly patient non-verbal appreciate consultation from pulmonary Problem List Medical Problems: (1) Elevated troponin Status: Acute (2) Fever Status: Acute (3) History of subarachnoid hemorrhage Status: Chronic (4) Hypoxia Status: Acute (5) Pneumonia Status: Acute Review of Systems cannot review in detail, non-verbal All Other Systems: Reviewed and Negative Medications Current Inpatient Medications Medications (Trade) Dose Ordered Sig/Madina Route Start Time Stop Time Status Last Admin Dose Admin Heparin Sodium (Porcine) (Heparin Sq 5000 Unit/0.5ml) 5,000 unit Q8 SQ 10/25/16 22:00 11/24/16 21:59 10/26/16 13:17 5,000 UNIT Ondansetron HCl (Zofran Inj) 4 mg Q6H PRN IV 10/25/16 17:30 11/24/16 17:29 Levofloxacin 750 mg/Prmx 150 ml @ 100 mls/hr DAILY@1600 IV 10/26/16 16:00 11/01/16 15:59 Vancomycin HCl 1100 mg/Sodium Chloride 272 ml @ 125 mls/hr Q10H IV 10/26/16 06:00 11/01/16 20:59 10/26/16 05:21 125 MLS/HR Acetaminophen (Tylenol Soln) 650 mg QID PRN PEG 10/25/16 18:00 11/24/16 17:59 Amantadine HCl (Symmetrel Cap) 100 mg DAILY PO 10/26/16 09:00 11/25/16 08:59 10/26/16 07:41 100 MG Chlorhexidine Gluconate (Peridex Oral Soln 15ML Udp) 15 ml BID MT 10/25/16 21:00 11/24/16 20:59 10/26/16 07:40 15 ML Dantrolene Sodium (Dantrium Cap) 25 mg DAILY PO 10/26/16 09:00 11/25/16 08:59 10/26/16 07:41 25 MG Famotidine (Pepcid Tab) 20 mg DAILY OG 10/26/16 09:00 11/25/16 08:59 10/26/16 07:40 20 MG Magnesium Hydroxide (Milk Of Magnesia Susp) 30 ml DAILY PRN PO 10/25/16 18:00 11/24/16 17:59 Polyethylene (Miralax Powder Packet) 17 gm DAILY PEG 10/26/16 09:00 11/25/16 08:59 10/26/16 07:42 17 GM Ipratropium [place] (Atrovent 0.02% 0.5MG/2.5ML Neb) 0.5 mg Q6R INH 10/25/16 21:00 11/24/16 20:59 10/26/16 14:21 0.5 MG Levalbuterol (Xopenex 1.25MG/ 0.5ML Neb) 1.25 mg Q6R INH 10/25/16 21:00 11/24/16 20:59 10/26/16 14:21 1.25 MG Vancomycin HCl (Consult) 1 ea UD PRN N/A 10/25/16 19:45 11/24/16 19:44 Aspirin (Aspirin Chew) 81 mg QAM PO 10/26/16 09:00 11/25/16 08:59 10/26/16 07:40 81 MG Metoprolol Tartrate (Lopressor Tab) 12.5 mg BID PO 10/26/16 09:00 11/25/16 08:59 10/26/16 07:40 12.5 MG Sodium Chloride 1,000 ml @ 125 mls/hr Q8H IV 10/25/16 23:30 11/24/16 23:29 10/26/16 07:42 125 MLS/HR Enteral Nutritional Formula (Boost) 1 can UD PO 10/26/16 11:00 11/25/16 10:59 Objective Vital Signs Date Time Temp Pulse Resp B/P (MAP) Pulse Ox O2 Delivery O2 Flow Rate FiO2 10/26/16 14:21 102 20 98 Trach Collar 9.0 10/26/16 12:07 36.6 96 20 101/69 (80) 100 Trach Collar 10/26/16 12:00 Humidified Air 8.0 40 Trach Collar 10/26/16 08:00 98 Humidified Air 8.0 40 Trach Collar 10/26/16 07:25 67 20 100 Trach Collar 9.0 10/26/16 07:13 37.0 107 19 104/69 (81) 100 Trach Collar 8.0 10/26/16 04:00 98 Trach Collar 40 10/26/16 02:52 37.7 103 21 104/69 (81) 98 Trach Collar 8.0 40 10/26/16 01:42 96 20 100 Trach Collar 9.0 10/25/16 23:59 100 Trach Collar 40 10/25/16 23:25 37.6 117 20 129/88 (102) 100 Trach Collar 40 10/25/16 19:40 37.2 122 26 118/75 (89) 99 Trach Collar 10.0 40 10/25/16 18:53 37.3 137 24 126/75 (92) 99 Trach Collar 35 10/25/16 18:33 100 10/25/16 18:08 130 22 100 Trach Collar 10/25/16 17:40 36.6 10/25/16 17:34 100 Trach Collar 13.0 10/25/16 17:15 130 20 120/78 100 Trach Collar 10/25/16 16:16 137 22 129/107 100 Trach Collar 10/25/16 15:32 95 Trach Collar 13.0 10/25/16 15:28 38.2 132 32 125/84 95 Trach Collar 13.0 Physical Exam General Appearance: no apparent distress, + thin Neck: supple, no adenopathy, no JVD, + pertinent finding (trach #[address], secretions) Respiratory/Chest: chest non-tender, no respiratory distress, no accessory muscle use, + rhonchi (bilaterally) Cardiovascular: no edema, no gallop, no JVD, no murmur, + tachycardia (regular rhythm) Abdomen: normal bowel sounds, non tender, soft, no organomegaly, + pertinent finding (PEG tube) Extremities: normal range of motion, non-tender, normal inspection, no pedal edema, no calf tenderness Neurologic/Psychiatric: electron beam welder II-XII nml as tested, no motor/sensory deficits, alert, normal mood/affect, oriented x 3 Skin: normal color, warm/dry, no rash Laboratory Results Last 24 Hours Test 10/25/16 15:47 10/25/16 16:00 10/25/16 16:02 10/25/16 19:18 Procalcitonin 0.08 ng/ml Lactic Acid Level 6.5 mmol/L 1.3 mmol/L Bedside Blood Gas pH (LAB) 7.33 Bedside Blood Gas pCO2 (LAB) 39 mmHg Bedside Blood Gas pO2 (LAB) 148 mmHg Bedside Blood Gas HCO3 (LAB) 21 meq/L Bedside Blood Gas Total CO2 22 mEq/l Bedside Blood Gas Base Excess (LAB) -5.0 meq/L Bedside Blood Gas O2 Saturation 99.0 % Test 10/25/16 22:01 10/26/16 06:12 10/26/16 14:10 Troponin I 4.370 ng/ml 3.690 ng/ml 2.620 ng/ml White Blood Count 12.08 K/uL Red Blood Count 4.21 M/uL Hemoglobin 11.9 g/dL Hematocrit 36.9 % Mean Corpuscular Volume 87.6 fL Mean Corpuscular Hemoglobin 28.3 pg Mean Corpuscular Hemoglobin Concent 32.2 g/dl Platelet Count 256 K/uL Mean Platelet Volume 11.9 fL Neutrophils (%) (Auto) 68.7 % Lymphocytes (%) (Auto) 18.7 % Monocytes (%) (Auto) 11.4 % Eosinophils (%) (Auto) 0.7 % Basophils (%) (Auto) 0.3 % Neutrophils # (Auto) 8.29 K/uL Lymphocytes # (Auto) 2.26 K/uL Monocytes # (Auto) 1.38 K/uL Eosinophils # (Auto) 0.09 K/uL Basophils # (Auto) 0.04 K/uL RDW Standard Deviation 47.1 fL RDW Coefficient of Variation 14.7 % Immature Granulocyte % (Auto) 0.2 % Immature Granulocyte # (Auto) 0.02 K/uL Sodium Level 143 mmol/L Potassium Level 4.1 mmol/L Chloride Level 109 mmol/L Carbon Dioxide Level 25 mmol/L Anion Gap 9.0 mmol/L Blood Urea Nitrogen 10 mg/dl Creatinine 0.47 mg/dl Est Creatinine Clear Calc Drug Dose 183.7 ml/min Estimated GFR () > 150.0 Estimated GFR (Non- 133.3 BUN/Creatinine Ratio 20.9 Random Glucose 94 mg/dl Calcium Level 8.0 mg/dl Total Bilirubin 1.0 mg/dl Aspartate Amino Transf (AST/SGOT) 45 U/L Alanine Aminotransferase (ALT/SGPT) 200 U/L Alkaline Phosphatase 130 U/L Total Protein 6.3 gm/dl Albumin 2.6 gm/dl Globulin 3.7 gm/dl Albumin/Globulin Ratio 0.7 Assessment and Plan Pt is a 46 yo male with hx of SAH, tracheostomy and PEG tube who is nonverbal; with significant cognitive decline who presents with worsening sob and noted to be in sepsis, apparently issues at [facility] with being able to suction, proper trach care Sepsis from pneumonia: initially given Vanco, Zosyn, Levaquin, will d/c Vanco with negative MRSA swab new tracheostomy placed, #4, may need to consider larger size if trach continues to get clogged tracheostomy care, suctioning follow up blood cultures afebrile since admission, WBC down to 12 from 22, improving slowly appreciate pulmonology consult Elevated troponin, NSTEMI vs demand ischemia: cannot report any chest pain multiple EKG without any signs of infarction, no real ischemia d/w Dr. Aguirre, will check echo, treat medically continue metoprolol and aspirin PEG tube care, consult servomechanism assembler, boost via PEG TUBE, will need to obtain longterm records Chronic spasticity cont dantrolene Hx of SAH stable Pt is FULL CODE prior to return to [facility], should discuss with physician at [facility] to make sure they are capable of caring for the tracheostomy, otherwise he will only continue to return with pneumonia
--- NOTE | 2016-10-26 22:11 | CARDIOLOGY CONSULTATION ---
DATE OF CONSULTATION: 10/26/2016 Mr. Alvarez is a 46-year-old male admitted yesterday with respiratory failure, presumed pneumonia, and presumed sepsis. The patient's troponin was elevated, and therefore, this consultation was ordered. Unfortunately, the patient's history is only obtainable through chart review. The patient is nonverbal from his subarachnoid hemorrhage which occurred in the past. He has a tracheostomy and PEG tube in place. Apparently, the patient developed acute shortness of breath while in the nursing home. He does have a history of mucus plugging and poor tracheostomy care. Also, a chest x-ray suggested possibility of a pneumonia and he was febrile suggesting the possibility of a sepsis syndrome. The patient is able to communicate with head nods and hand squeezes. He denies chest discomfort. Also denies a prior cardiac history. PAST MEDICAL HISTORY: 1. History of subarachnoid hemorrhage. 2. Chronic respiratory failure -- tracheostomy in place. 3. Nonverbal. 4. PEG tube in place. MEDICATIONS: 1. Lopressor 12.5 mg b.i.d. 2. Aspirin 81 mg per day. 3. Heparin 5000 units subq. 8 hours. 4. Atrovent nebulizer q. 6 hours. 5. Xopenex nebulizer q. 6 hours. 6. Vancomycin 1.1 gram IV q. 10 hours. 7. Levofloxacin 750 mg IV daily. ALLERGIES: 1. KEFLEX. 2. TOMATOES. SOCIAL HISTORY: Unobtainable. FAMILY HISTORY: Unobtainable. REVIEW OF SYSTEMS: Unobtainable. PHYSICAL EXAMINATION: GENERAL: He is a well-developed, well-nourished white male lying supine in bed without complaints. VITAL SIGNS: Blood pressure is 104/70 with a regular pulse of 90. Respiratory rate is 18. The patient is afebrile at 37.0 degrees Celsius. Saturations 100% on 8 liters per trach collar. HEENT: Negative. NECK: Supple with full carotid upstrokes. No obvious bruits. Jugular venous pressure is difficult to assess. Tracheostomy is noted. CARDIOVASCULAR: Reveals a regular rhythm with normal S1 and S2. No S3, S4 or murmurs are noted. LUNGS: Note coarse breath sounds throughout, but no rales, rhonchi or wheezes. ABDOMEN: Soft without bruits. PEG tube is in place. EXTREMITIES: Reveal intact radial artery pulses bilaterally. There is no peripheral edema. DATA: CBC notes hemoglobin of 11.9, hematocrit 36.9, white count 12.0, platelet count 256,000. Electrolytes note sodium of 143, potassium 4.1, chloride 109, bicarb 25, BUN 10, creatinine 0.7, glucose 94. Troponin I level is mildly elevated at 0.254 with followup values of 4.37 and 3.69. CK is 85 with an MB fraction of 2.3. First 2 EKGs note sinus tachycardia. Second EKGs also note sinus rhythm but with early repolarization changes, most pronounced in the lateral leads. Chest x-ray notes tracheostomy and raises the possibility of airspace opacities at the lung bases. A pneumomediastinum is also suspected. do all operator notes sinus rhythm. IMPRESSION: Mr. Alvarez was admitted with respiratory failure from a presumed pneumonia with a sepsis-type syndrome. His elevated troponin may simply reflect his poor clinical state at the time of presentation. There are no ischemic EKG changes; however, the possibility of a mild pericarditis is entertained as he now demonstrates some EKG changes consistent with a pericarditis-type picture. Clearly, an echocardiogram is indicated. PLAN: 1. Agree with initiation of metoprolol tartrate and aspirin. 2. Check echocardiogram. 3. Further recommendations depending on his clinical course. GOPAL
[2016-10-27] VITALS (10 sets, daily range): BP systolic 100–143; BP diastolic 65–74; PULSE 87–116; TEMP 36.4–37.5; O2SAT 88–100
[2016-10-27] MEDS: VANCOMYCIN INJ 1,100 MG in SODIUM CHLORIDE 0.9% 250ML 250 ML IV SCH (01:45)
[2016-10-27] MEDS: IPRATROPIUM BROMIDE NEB SOLN 0.02% 2.5 ML VIAL INH SCH ×4 (02:01→19:34)
[2016-10-27] MEDS: LEVALBUTEROL 1.25MG/0.5ML NEB INH SCH ×4 (02:01→19:34)
[2016-10-27] MEDS: BOOST VANILLA PEG SCH ×12 (04:00→20:44)
[2016-10-27] MEDS: HEPARIN SOD 5000 UNIT/0.5 ML CARP SQ SCH ×3 (05:38→21:51)
[2016-10-27] MEDS ORDERED: PERFLUTREN LIPID MICROSPHERE (DEFINITY) IV ONE (07:05)
[2016-10-27 08:10] LABS: BASO % 0.7 %; BASO ABS # 0.06 K/uL (0-0.2); COMPLETE YES; EOS % 1.4 %; HEMATOCRIT 36.5 % (42-52); IG% 0.2 %; LYMPH % 22.4 %; LYMPH ABS # 1.94 K/uL (1.2-3.4); MEAN CELL VOLUME 86.7 fL (80-100); MEAN CORPUSCULAR HEMOGLOBIN 27.8 pg (25-34); MEAN CORPUSCULAR HGB CONC 32.1 g/dl (32-36); MEAN PLATELET VOLUME 11.3 fL (7.4-10.4); MONO % 7.7 %; NEUT % 67.6 %; PLATELET COUNT 238 K/uL (130-400); RED BLOOD COUNT 4.21 M/uL (4.7-6.1); WHITE BLOOD COUNT 8.68 K/uL (4.8-10.8)
[2016-10-27] MEDS: SODIUM CHLORIDE 0.9% 1000ML 1,000 ML IV SCH ×2 (08:11→15:33)
[2016-10-27] MEDS: FAMOTIDINE 20 MG TAB OG SCH (08:12)
[2016-10-27] MEDS: METOPROLOL TARTRATE 25 MG TAB PO SCH (08:12)
[2016-10-27] MEDS: ASPIRIN 81 MG CHEW PO SCH (08:12)
[2016-10-27] MEDS: DANTROLENE SODIUM 25 MG CAP PO SCH (08:13)
[2016-10-27] MEDS: AMANTADINE HCL 100 MG CAP PO SCH (08:13)
[2016-10-27] MEDS: POLYETHYLENE (MIRALAX) 17 GM PACK PEG SCH (08:13)
[2016-10-27 08:34] LABS: ALT/SGPT 134 U/L (12-78); BLOOD UREA NITROGEN 6 mg/dl (7-18); BUN/CREATININE RATIO 13.3 (10-20); CARBON DIOXIDE 27 mmol/L (21-32); CHLORIDE 105 mmol/L (98-107); CREATININE 0.43 mg/dl (0.60-1.40); GLUCOSE 86 mg/dl (70-99); SODIUM 140 mmol/L (136-145)
[2016-10-27 08:37] LABS: ALB/GLOB RATIO 0.6 (0.9-2); ALKALINE PHOSPHATASE 122 U/L (45-117); AST/SGOT 28 U/L (15-37)
[2016-10-27] MEDS: CHLORHEXIDINE GLUCONATE 0.12% 15 ML UDP MT SCH ×2 (08:43→23:21)
[2016-10-27 08:45] LABS: CALCIUM 8.2 mg/dl (8.5-10.1)
--- NOTE | 2016-10-27 10:25 | CARDIOLOGY PROGRESS NOTE ---
DATE: 10/27/2016 SUBJECTIVE: Mr. Alvarez is resting comfortably in bed, without complaints of chest pain or dyspnea. OBJECTIVE: VITAL SIGNS: Blood pressure is 140/70 with a regular pulse of 90. Respiratory rate is 18. The patient is afebrile at 36.6 degrees Celsius. Saturation is 92% on 40% trach collar. NECK: Supple with full carotid upstrokes. There are no obvious bruits. Jugular venous pressure is difficult to assess. Tracheostomy noted. CARDIOVASCULAR: Reveals a regular rhythm with normal S1 and S2. Heart sounds are distant. No obvious murmurs. LUNGS: Clear without rales, rhonchi, or wheezes. ABDOMEN: Soft without bruits. PEG tube in place. EXTREMITIES: There is no peripheral edema. DATA: CBC notes hemoglobin 11.7, hematocrit 36.5, white count 8.6, platelet count 238,000. Electrolytes note a sodium of 140, potassium 4.0, chloride 105, bicarbonate 27, BUN 6, creatinine 0.43, glucose 86. Troponin I level down to 2.62. clinical research monitor notes sinus rhythm. EKG notes sinus rhythm and a diffuse ST abnormality. Echocardiogram is pending. IMPRESSION AND PLAN: 1. Elevated troponin-Await results of echocardiogram. As noted previously, the minor elevation in troponin along with EKG suggesting pericarditis, may point to a myopericarditis. The patient denies chest discomfort putting treatment of a possible myopericarditis into question. 2. Respiratory failure-Presumed pneumonia with a sepsis-like syndrome. One of two blood cultures notes a gram positive bacillus. 3. History of subarachnoid hemorrhage-The patient nonverbal and has a tracheostomy and PEG tube in place. [facility]
--- NOTE | 2016-10-27 12:07 | Hospitalist Progress Note ---
Hospitalist Progress Note Date of Service Oct 27, 2016. Subjective Pt evaluation today including: physical exam, chart review, lab review, review of studies, review of inpatient medication list pt is nonverbal, but shakes his head no when asked about pain. Additional Comments: unable to perform. Pt is nonverbal Objective Vital Signs Date Time Temp Pulse Resp B/P (MAP) Pulse Ox O2 Delivery O2 Flow Rate FiO2 10/27/16 11:33 36.4 116 18 117/72 (87) 91 Trach Collar 10/27/16 08:00 Humidified Air 8.0 40 Trach Collar 10/27/16 07:25 101 20 88 Trach Collar 12.0 40 10/27/16 07:25 36.6 111 18 143/70 (94) 92 Trach Collar 10/27/16 04:00 Trach Collar 40 10/27/16 02:37 36.7 111 22 115/69 (84) 100 Trach Collar 8.0 40 10/27/16 02:01 111 20 98 Trach Collar 9.0 40 10/27/16 00:01 Trach Collar 40 10/26/16 23:09 37.1 99 20 111/73 (86) 100 Trach Collar 40 10/26/16 20:00 Trach Collar 40 10/26/16 19:15 112 20 98 Trach Collar 9.0 40 10/26/16 19:05 37.0 115 20 107/59 (75) 98 Trach Collar 10/26/16 16:00 Humidified Air 8.0 40 Trach Collar 10/26/16 15:40 36.9 115 20 111/72 (85) 98 Trach Collar 10/26/16 14:21 102 20 98 Trach Collar 9.0 10/26/16 12:07 36.6 96 20 101/69 (80) 100 Trach Collar 10/26/16 12:00 Humidified Air 8.0 40 Trach Collar Physical Exam General Appearance: + pertinent finding (mild respiratory distress) Eyes: EOMI ENT: + pertinent finding (trach in place-->some sputum noted) Neck: no JVD Respiratory/Chest: + pertinent finding (crackles at the bases bilaterally. No wheezing heard) Cardiovascular: regular rate, rhythm Abdomen: normal bowel sounds, non tender, soft Extremities: non-tender, no pedal edema Neurologic/Psychiatric: + pertinent finding (alert. L sided contracture arm and leg. ) Skin: warm/dry Laboratory Results 10/27/16 07:38 Red Blood Count 4.21, Mean Corpuscular Volume 86.7, Mean Corpuscular Hemoglobin 27.8, Mean Corpuscular Hemoglobin Concent 32.1, Mean Platelet Volume 11.3, Neutrophils (%) (Auto) 67.6, Lymphocytes (%) (Auto) 22.4, Monocytes (%) (Auto) 7.7, Eosinophils (%) (Auto) 1.4, Basophils (%) (Auto) 0.7, Neutrophils # (Auto) 5.87, Lymphocytes # (Auto) 1.94, Monocytes # (Auto) 0.67, Eosinophils # (Auto) 0.12, Basophils # (Auto) 0.06 10/27/16 07:38 Test 10/27/16 01:21 10/27/16 07:38 10/27/16 09:35 10/27/16 11:53 Vancomycin Level Trough 10.2 mcg/ml (SEE COMMENT) White Blood Count 8.68 K/uL (4.8-10.8) Red Blood Count 4.21 M/uL (4.7-6.1) Hemoglobin 11.7 g/dL (14.0-18.0) Hematocrit 36.5 % (42-52) Mean Corpuscular Volume 86.7 fL (80-100) Mean Corpuscular Hemoglobin 27.8 pg (25-34) Mean Corpuscular Hemoglobin Concent 32.1 g/dl (32-36) Platelet Count 238 K/uL (130-400) Mean Platelet Volume 11.3 fL (7.4-10.4) Neutrophils (%) (Auto) 67.6 % Lymphocytes (%) (Auto) 22.4 % Monocytes (%) (Auto) 7.7 % Eosinophils (%) (Auto) 1.4 % Basophils (%) (Auto) 0.7 % Neutrophils # (Auto) 5.87 K/uL (1.4-6.5) Lymphocytes # (Auto) 1.94 K/uL (1.2-3.4) Monocytes # (Auto) 0.67 K/uL (0.11-0.59) Eosinophils # (Auto) 0.12 K/uL (0-0.5) Basophils # (Auto) 0.06 K/uL (0-0.2) RDW Standard Deviation 46.3 fL (36.4-46.3) RDW Coefficient of Variation 14.6 % (11.5-14.5) Immature Granulocyte % (Auto) 0.2 % Immature Granulocyte # (Auto) 0.02 K/uL (0.00-0.02) Anion Gap 8.0 mmol/L (3-11) Est Creatinine Clear Calc Drug Dose 200.7 ml/min Estimated GFR () > 150.0 Estimated GFR (Non- 138.3 BUN/Creatinine Ratio 13.3 (10-20) Calcium Level 8.2 mg/dl (8.5-10.1) Total Bilirubin 1.0 mg/dl (0.2-1) Aspartate Amino Transf (AST/SGOT) 28 U/L (15-37) Alanine Aminotransferase (ALT/SGPT) 134 U/L (12-78) Alkaline Phosphatase 122 U/L (45-117) Total Protein 6.4 gm/dl (6.4-8.2) Albumin 2.5 gm/dl (3.4-5.0) Globulin 3.9 gm/dl (2.5-4.0) Albumin/Globulin Ratio 0.6 (0.9-2) Hepatitis C Antibody PRELIM POS (NEG) Creatine Kinase MB Ratio (0-3.0) Last 24 Hours Test 10/26/16 14:10 10/27/16 01:21 10/27/16 07:38 10/27/16 09:35 Troponin I 2.620 ng/ml Vancomycin Level Trough 10.2 mcg/ml White Blood Count 8.68 K/uL Red Blood Count 4.21 M/uL Hemoglobin 11.7 g/dL Hematocrit 36.5 % Mean Corpuscular Volume 86.7 fL Mean Corpuscular Hemoglobin 27.8 pg Mean Corpuscular Hemoglobin Concent 32.1 g/dl Platelet Count 238 K/uL Mean Platelet Volume 11.3 fL Neutrophils (%) (Auto) 67.6 % Lymphocytes (%) (Auto) 22.4 % Monocytes (%) (Auto) 7.7 % Eosinophils (%) (Auto) 1.4 % Basophils (%) (Auto) 0.7 % Neutrophils # (Auto) 5.87 K/uL Lymphocytes # (Auto) 1.94 K/uL Monocytes # (Auto) 0.67 K/uL Eosinophils # (Auto) 0.12 K/uL Basophils # (Auto) 0.06 K/uL RDW Standard Deviation 46.3 fL RDW Coefficient of Variation 14.6 % Immature Granulocyte % (Auto) 0.2 % Immature Granulocyte # (Auto) 0.02 K/uL Sodium Level 140 mmol/L Potassium Level 4.0 mmol/L Chloride Level 105 mmol/L Carbon Dioxide Level 27 mmol/L Anion Gap 8.0 mmol/L Blood Urea Nitrogen 6 mg/dl Creatinine 0.43 mg/dl Est Creatinine Clear Calc Drug Dose 200.7 ml/min Estimated GFR () > 150.0 Estimated GFR (Non- 138.3 BUN/Creatinine Ratio 13.3 Random Glucose 86 mg/dl Calcium Level 8.2 mg/dl Total Bilirubin 1.0 mg/dl Aspartate Amino Transf (AST/SGOT) 28 U/L Alanine Aminotransferase (ALT/SGPT) 134 U/L Alkaline Phosphatase 122 U/L Total Protein 6.4 gm/dl Albumin 2.5 gm/dl Globulin 3.9 gm/dl Albumin/Globulin Ratio 0.6 Hepatitis C Antibody PRELIM POS Assessment and Plan Pt is a 46 yo male with hx of SAH, tracheostomy and PEG tube who is nonverbal; with significant cognitive decline who presents with worsening sob and noted to be in sepsis, apparently issues at [facility] with being able to suction, proper trach care Sepsis from pneumonia-clinically improving one blood cx growing Gram + bacilli initially given Vanco, Zosyn, Levaquin. Vanco d/c'ed (MRSA swab neg) new tracheostomy placed, #4 tracheostomy care, suctioning Elevated troponin, NSTEMI vs demand ischemia vs myocarditis: cannot report any chest pain f/u echo cards following d/w cards, change metoprolol to coreg BID. Also start losartan 25 mg daily PEG tube care, consult nurses director, boost via PEG TUBE Chronic spasticity cont dantrolene Hx of SAH stable Pt is FULL CODE This chart was completed in part utilizing [employer] Speech Voice Recognition software. Attempts were made to minimize the grammatical errors, random word insertions, pronoun errors and incomplete sentences. Any formal questions or concerns about the content, text or information contained within the body of this dictation should be directly addressed to the provider for clarification.
[2016-10-27] MEDS: LOSARTAN POTASSIUM 25 MG TAB PEG SCH (12:15)
--- NOTE | 2016-10-27 12:49 | DIAGNOSTIC IMAGING REPORT ---
CHEST ONE VIEW PORTABLE CLINICAL HISTORY: Tachycardia. Labored breathing. COMPARISON STUDY: Chest radiograph October 25, 2016. FINDINGS: This exam is compromised by motion artifact. A STOCK SUPER[employer]OR shunt catheter is partially imaged. A tracheostomy tube is in place. Cardiac size is at the upper limits of normal. There is no pneumothorax or pleural effusion is no evidence of pulmonary edema. There may be mild left lung airspace opacities. In part, these could be artifactual. IMPRESSION: 1. Suspected asymmetric left lung airspace opacities which favors an infectious process. Radiographic follow-up to ensure resolution is recommended. 2. No pneumothorax. 3. Study mildly compromised by motion artifact. Electronically signed by: Tam Etienne M.D. 10/27/2016 12:48 PM Dictated Date/Time: 10/27/2016 12:47 PM
[2016-10-27] MEDS ORDERED: OPTIRAY 320 IV PRN (13:45)
--- NOTE | 2016-10-27 15:16 | DIAGNOSTIC IMAGING REPORT ---
CT ANGIOGRAM OF THE CHEST CLINICAL HISTORY: Tachycardia. COMPARISON STUDY: Chest x-ray dated 10/27/2016. TECHNIQUE: Following the IV administration of 93 cc of Optiray 320, CT angiogram of the chest was performed from the upper abdomen to the thoracic inlet utilizing the pulmonary embolus protocol. Images are reviewed in the axial, sagittal, and coronal planes. 3-D MIPS images are created and assessed. IV contrast was administered without complication. The examination is degraded by motion artifact as well as by streak artifact from the arms which could not be elevated above the chest. CT DOSE: 626.93 mGycm FINDINGS: Thyroid: Imaged portions of the thyroid gland are normal in size and attenuation. Thoracic aorta: The thoracic aorta is normal in caliber and demonstrates standard 3-vessel arch anatomy. No dissection is seen. Pulmonary vasculature: The pulmonary trunk is normal in caliber. There are no filling defects identified in main, lobar, or proximal segmental pulmonary branches to suggest pulmonary embolus. Evaluation of the peripheral branches is degraded by motion and streak artifact. Heart: The heart is normal in size and configuration, and without pericardial effusion. Lungs and pleural spaces: A tracheostomy is in place. Evaluation of the lung parenchyma is significantly degraded by motion artifact. There is patchy airspace consolidation in the lingula. There is dependent bibasilar airspace consolidation as well as trace pleural effusions. The lungs and pleural spaces are clear. The trachea is clear. Intraluminal secretions are suggested in the right lower lobe bronchus. Mediastinum: There are scattered subcentimeter mediastinal lymph nodes. These are not pathologically enlarged by size criteria. No pneumomediastinum is identified. Za: Clear. Axillae: There is no axillary lymphadenopathy. Upper abdomen: Partially visualized upper abdominal viscera is within normal limits. A ventriculoperitoneal shunt catheter traverses the right ventral chest wall and is coiled in the left upper quadrant. Skeletal structures: No lytic or blastic bony lesions are seen. IMPRESSION: 1. Significantly motion and streak artifact degraded examination. 2. There is no evidence of central pulmonary embolus in the main, lobar, or proximal segmental pulmonary arteries. 3. There is patchy airspace consolidation in the lingula typical in appearance for pneumonia/aspiration pneumonitis. 4. There is dependent bibasilar airspace consolidation and trace pleural effusions. This could represent atelectasis and/or additional foci of pneumonia. 5. Additional findings as above. Electronically signed by: Yadiel May M.D. 10/27/2016 3:14 PM Dictated Date/Time: 10/27/2016 3:08 PM
[2016-10-27] MEDS: LEVOFLOXACIN / D5W 750 MG in PREMIXED IN D5W 150 ML IV SCH (15:33)
--- NOTE | 2016-10-27 16:36 | ECHOCARDIOGRAM REPORT ---
*NOTICE TO RECEIVING LIBERTARIAN AGENCY This information is strictly Confidential and protected under [place] law. [place] law prohibits you from making any further disclosure of this information unless further disclosure is expressly permitted by the written consent of the person to whom it pertains or is authorized by law. A general authorization for the release of medical or other information is not sufficient for this purpose. Hospital accepts no responsibility if the information is made available to any other person, INCLUDING THE PATIENT. Interpretation Summary * Name: YOLANDE MURCIA [id number] Study Date: 10/27/2016 06:52 AM BP: 115/69 mmHg * Patient Location: C.2T\S\S243\S\1 HR: 98 * : 1970 (M/d/yyyy) Gender: Male Height: 67 in * Age: 46 yrs Ethnicity: CA Weight: 146 lb * Ordering Physician: Fabian Hernandez * Referring Physician: Mathew VALERA * Performed By: Marleni Pittman RDCS * * Reason For Study: AMI * BSA: 1.8 m2 * -- Conclusions -- * 1. Normal LV size. Normal LV wall thickness. * 2. Mild global LV dysfunction. LVEF 40-45 %. * 3. Normal RV size and function. * 4. No significant valvular pathology. * 5. Normal estimated PA and RA pressures. * 6. No prior studies for comparison. Procedure Details * A complete two-dimensional transthoracic echocardiogram was performed (2D, M-mode, Doppler and color flow Doppler). * A contrast injection of Definity was performed to improve assessment of LV function. * Contrast was injected into an intravenous site in the left arm. * One vial of Definity ultrasound contrast was diluted in normal saline to a total volume of 10 ml. A total of '3' ml of solution was administered during imaging. * Lot # [id number] of Definity utilized for procedure. * Expiration date NOV 09. * The attending nurse who injected the contrast agent was Devon Meraz RN. Left Ventricle * The left ventricle is grossly normal size. * Ejection Fraction = 40-45%. * There is mild global hypokinesis of the left ventricle. Right Ventricle * The right ventricle is grossly normal size. * The right ventricular systolic function is normal as assessed by tricuspid annular plane systolic excursion (TAPSE) (normal >1.5 cm). Atria * Borderline left atrial enlargement. * Right atrial size is normal. * No ASD detected; PFO is not assessed. Mitral Valve * The mitral valve is grossly normal. * There is no mitral valve stenosis. * There is trace mitral regurgitation. Tricuspid Valve * The tricuspid valve is not well visualized, but is grossly normal. * There is no tricuspid stenosis. * Significant tricuspid regurgitation is absent. Aortic Valve * The aortic valve opens well. * The aortic valve is trileaflet. * No hemodynamically significant valvular aortic stenosis. * There is no significant aortic regurgitation. Pulmonic Valve * The pulmonary valve is inadequately visualized, but the Doppler data is adequate for interpretation. * Pulmonic stenosis is absent. * Trace pulmonic valvular regurgitation. Great Vessels * The aortic root and proximal ascending aorta are normal sized. Pericardium/Pleural * There is no pericardial effusion. Great Vessels * Normal inferior vena cava size and collapsability with sniff indicates a normal right atrial pressure of 3 mmHg MMode 2D Measurements and Calculations IVSd 1.1 cm LVIDd 4.4 cm LVIDs 3.1 cm LVPWd 0.98 cm IVS/LVPW 1.2 FS 30.6 % EDV(Teich) 88.9 ml ESV(Teich) 37.1 ml EF(Teich) 58.3 % EDV(cubed) 86.7 ml ESV(cubed) 29.0 ml EF(cubed) 66.6 % LV mass(C)d 162.3 grams LV mass(C)dI 91.8 grams/m\S\2 CO(Teich) 5.6 l/min CI(Teich) 3.2 l/min/m\S\2 SV(Teich) 51.8 ml SI(Teich) 29.3 ml/m\S\2 CO(cubed) 6.2 l/min CI(cubed) 3.5 l/min/m\S\2 SV(cubed) 57.7 ml SI(cubed) 32.6 ml/m\S\2 Ao root diam 3.3 cm Ao root area 8.6 cm\S\2 ACS 1.8 cm LA dimension 3.5 cm asc Aorta Diam 2.6 cm LA/Ao 1.1 LVOT diam 2.0 cm LVOT area 3.2 cm\S\2 LVAd ap4 39.0 cm\S\2 LVLd ap4 9.0 cm EDV(MOD-sp4) 137.0 ml LVAs ap4 26.7 cm\S\2 LVLs ap4 7.8 cm ESV(MOD-sp4) 77.0 ml EF(MOD-sp4) 43.8 % LVAd ap2 38.6 cm\S\2 LVLd ap2 8.4 cm EDV(MOD-sp2) 143.0 ml LVAs ap2 23.0 cm\S\2 LVLs ap2 6.7 cm ESV(MOD-sp2) 66.0 ml EF(MOD-sp2) 53.8 % CO(MOD-sp4) 6.5 l/min CI(MOD-sp4) 3.7 l/min/m\S\2 SV(MOD-sp4) 60.0 ml SI(MOD-sp4) 33.9 ml/m\S\2 CO(MOD-sp2) 8.3 l/min CI(MOD-sp2) 4.7 l/min/m\S\2 SV(MOD-sp2) 77.0 ml SI(MOD-sp2) 43.5 ml/m\S\2 Doppler Measurements and Calculations MV E max elio 87.4 cm/sec MV A max elio 42.4 cm/sec MV E/A 2.1 MV dec time 0.16 sec Ao V2 max 104.2 cm/sec Ao max PG 4.3 mmHg Ao max PG (full) 0.53 mmHg CRISSY(V,A) 3.0 cm\S\2 CRISSY(V,D) 3.0 cm\S\2 LV V1 max PG 3.8 mmHg LV V1 max 97.7 cm/sec PA V2 max 90.9 cm/sec PA max PG 3.3 mmHg PA acc slope 549.7 cm/sec\S\2 PA acc time 0.13 sec PI max elio 152.7 cm/sec PI max PG 9.4 mmHg PI dec slope 153.7 cm/sec\S\2 PI P1/2t 291.0 msec TR max elio 145.9 cm/sec PA pr(Accel) 18.8 mmHg
[2016-10-27] MEDS: CARVEDILOL 3.125 MG TAB PEG SCH (21:49)
[2016-10-28] VITALS (10 sets, daily range): BP systolic 99–124; BP diastolic 61–82; PULSE 77–104; TEMP 36.6–37.3; O2SAT 95–100
[2016-10-28] MEDS: BOOST VANILLA PEG SCH ×12 (00:49→20:08)
[2016-10-28] MEDS: IPRATROPIUM BROMIDE NEB SOLN 0.02% 2.5 ML VIAL INH SCH ×4 (02:06→19:26)
[2016-10-28] MEDS: LEVALBUTEROL 1.25MG/0.5ML NEB INH SCH ×4 (02:06→19:26)
[2016-10-28] MEDS: SODIUM CHLORIDE 0.9% 1000ML 1,000 ML IV SCH (02:40)
[2016-10-28] MEDS: HEPARIN SOD 5000 UNIT/0.5 ML CARP SQ SCH ×3 (05:41→21:14)
[2016-10-28] MEDS: FAMOTIDINE 20 MG TAB OG SCH (09:08)
[2016-10-28] MEDS: AMANTADINE HCL 100 MG CAP PO SCH (09:08)
[2016-10-28] MEDS: CHLORHEXIDINE GLUCONATE 0.12% 15 ML UDP MT SCH ×2 (09:08→20:08)
[2016-10-28] MEDS: DANTROLENE SODIUM 25 MG CAP PO SCH (09:08)
[2016-10-28] MEDS: ASPIRIN 81 MG CHEW PO SCH (09:08)
[2016-10-28] MEDS: CARVEDILOL 3.125 MG TAB PEG SCH ×2 (09:09→20:08)
[2016-10-28] MEDS: LOSARTAN POTASSIUM 25 MG TAB PEG SCH (09:09)
[2016-10-28] MEDS: POLYETHYLENE (MIRALAX) 17 GM PACK PEG SCH (09:09)
[2016-10-28 09:25] LABS: ALT/SGPT 96 U/L (12-78); BLOOD UREA NITROGEN 4 mg/dl (7-18); BUN/CREATININE RATIO 9.3 (10-20); CARBON DIOXIDE 25 mmol/L (21-32); CHLORIDE 106 mmol/L (98-107); CREATININE 0.44 mg/dl (0.60-1.40); GLUCOSE 81 mg/dl (70-99); POTASSIUM 4.3 mmol/L (3.5-5.1); SODIUM 139 mmol/L (136-145)
[2016-10-28 09:28] LABS: ALB/GLOB RATIO 0.6 (0.9-2); ALKALINE PHOSPHATASE 109 U/L (45-117); AST/SGOT 19 U/L (15-37); CALCIUM 8.5 mg/dl (8.5-10.1)
--- NOTE | 2016-10-28 10:22 | CARDIOLOGY PROGRESS NOTE ---
DATE: 10/28/2016 DATE: 10/28/2016. SUBJECTIVE: Mr. Alvarez is resting comfortably in bed without complaints of chest pain or dyspnea. OBJECTIVE: VITAL SIGNS: Blood pressure 120/80 with a regular pulse of 90. Respiratory rate is 18. The patient is afebrile at 36.6 degrees Celsius. Saturation 100% on 50% FIO2. NECK: Supple with full carotid upstrokes. No carotid bruits. Jugular venous pressure is flat at 90 degrees. There is no thyromegaly. CARDIOVASCULAR EXAMINATION: Reveals a regular rhythm with normal S1 and S2. Heart sounds are distant. No obvious murmurs. LUNGS: Clear without rales, rhonchi, or wheezes. ABDOMEN: Soft without bruits. PEG tube is in place. EXTREMITIES: Reveal no peripheral edema. DATA: CBC and electrolytes are pending. Echocardiogram noted mild left ventricular dysfunction, ejection fraction of 40-45%. There is mild global hypokinesis. IMPRESSION AND PLAN: 1. Elevated troponin -- suspect this could represent a myopericarditis as there is mild left ventricular dysfunction, elevated troponin and EKG changes suggesting pericarditis. However, the patient has no symptoms. Unsure if the use of nonsteroidal agents or colchicine indicated. 2. Mild left ventricular dysfunction -- started carvedilol and losartan yesterday. Tolerating medications without difficulty. Would attempt up titration of the medications and plan to recheck an echocardiogram in 2-3 months. 3. Respiratory failure -- presumed pneumonia with a sepsis-like syndrome. One of 2 blood cultures noted a gram positive bacillus. 4. History of subarachnoid hemorrhage -- patient nonvocal and has a tracheostomy and PEG tube in place.
[2016-10-28 11:14] LABS: BASO % 0.5 %; BASO ABS # 0.04 K/uL (0-0.2); COMPLETE YES; EOS % 1.8 %; HEMATOCRIT 35.5 % (42-52); IG% 0.3 %; LYMPH % 25.2 %; LYMPH ABS # 1.86 K/uL (1.2-3.4); MEAN CELL VOLUME 87.4 fL (80-100); MEAN CORPUSCULAR HEMOGLOBIN 28.6 pg (25-34); MEAN CORPUSCULAR HGB CONC 32.7 g/dl (32-36); MEAN PLATELET VOLUME 12.7 fL (7.4-10.4); MONO % 10.3 %; NEUT % 61.9 %; PLATELET COUNT 237 K/uL (130-400); RED BLOOD COUNT 4.06 M/uL (4.7-6.1); WHITE BLOOD COUNT 7.39 K/uL (4.8-10.8)
--- NOTE | 2016-10-28 15:05 | Hospitalist Progress Note ---
Hospitalist Progress Note Date of Service Oct 28, 2016. Subjective Pt evaluation today including: conversation w/ patient, physical exam, chart review, lab review, review of studies, review of inpatient medication list Patient much more drowsy today. Opens his eyes when shaken. Nonverbal. According to his guards, the patient did not sleep all night. He has been sleeping much of the morning. Additional Comments: Unable to perform Objective Vital Signs Date Time Temp Pulse Resp B/P (MAP) Pulse Ox O2 Delivery O2 Flow Rate FiO2 10/28/16 13:55 90 18 97 Trach Collar 50 10/28/16 12:00 Humidified Air 11.0 50 Trach Collar 10/28/16 11:33 36.6 77 16 124/82 (96) 96 Trach Collar 50 10/28/16 08:00 Humidified Air 11.0 50 Trach Collar 10/28/16 07:26 36.6 96 18 121/81 (94) 100 Trach Collar 50 10/28/16 07:05 103 18 98 Trach Collar 50 10/28/16 04:00 37.2 98 18 111/73 (86) 95 Room Air 10/28/16 04:00 Humidified Air 11.0 50 Trach Collar 10/28/16 02:06 104 18 99 Trach Collar 50 10/27/16 23:59 Humidified Air 11.0 50 Trach Collar 10/27/16 23:44 37.2 97 18 100/69 (79) 100 Trach Collar 10/27/16 20:01 Humidified Air 8.0 40 Trach Collar 10/27/16 19:45 37.1 107 21 113/72 (86) 99 Nasal Cannula 11.0 Humidified Air 10/27/16 19:34 88 18 100 Trach Collar 50 10/27/16 18:04 37.5 106 20 104/74 (84) 100 Trach Collar 8.0 50 10/27/16 16:00 Humidified Air 8.0 40 Trach Collar Physical Exam General Appearance: no apparent distress, + pertinent finding (resting in bed) ENT: + pertinent finding (trach in place. Clear sputum drainage noted.) Neck: no JVD Respiratory/Chest: + pertinent finding (continued rhonchorous breath sounds bilaterally.) Cardiovascular: regular rate, rhythm Abdomen: normal bowel sounds, non tender, soft Extremities: non-tender, no pedal edema Neurologic/Psychiatric: + pertinent finding (contracture again noted on the left. Not following commands today. Hard to arouse.) Skin: warm/dry Laboratory Results 10/28/16 08:37 Red Blood Count 4.06, Mean Corpuscular Volume 87.4, Mean Corpuscular Hemoglobin 28.6, Mean Corpuscular Hemoglobin Concent 32.7, Mean Platelet Volume 12.7, Neutrophils (%) (Auto) 61.9, Lymphocytes (%) (Auto) 25.2, Monocytes (%) (Auto) 10.3, Eosinophils (%) (Auto) 1.8, Basophils (%) (Auto) 0.5, Neutrophils # (Auto ) 4.58, Lymphocytes # (Auto) 1.86, Monocytes # (Auto) 0.76, Eosinophils # (Auto ) 0.13, Basophils # (Auto) 0.04 10/28/16 08:37 Test 10/28/16 08:37 White Blood Count 7.39 K/uL (4.8-10.8) Red Blood Count 4.06 M/uL (4.7-6.1) Hemoglobin 11.6 g/dL (14.0-18.0) Hematocrit 35.5 % (42-52) Mean Corpuscular Volume 87.4 fL (80-100) Mean Corpuscular Hemoglobin 28.6 pg (25-34) Mean Corpuscular Hemoglobin Concent 32.7 g/dl (32-36) Platelet Count 237 K/uL (130-400) Mean Platelet Volume 12.7 fL (7.4-10.4) Neutrophils (%) (Auto) 61.9 % Lymphocytes (%) (Auto) 25.2 % Monocytes (%) (Auto) 10.3 % Eosinophils (%) (Auto) 1.8 % Basophils (%) (Auto) 0.5 % Neutrophils # (Auto) 4.58 K/uL (1.4-6.5) Lymphocytes # (Auto) 1.86 K/uL (1.2-3.4) Monocytes # (Auto) 0.76 K/uL (0.11-0.59) Eosinophils # (Auto) 0.13 K/uL (0-0.5) Basophils # (Auto) 0.04 K/uL (0-0.2) RDW Standard Deviation 47.4 fL (36.4-46.3) RDW Coefficient of Variation 14.7 % (11.5-14.5) Immature Granulocyte % (Auto) 0.3 % Immature Granulocyte # (Auto) 0.02 K/uL (0.00-0.02) Anion Gap 8.0 mmol/L (3-11) Est Creatinine Clear Calc Drug Dose 196.1 ml/min Estimated GFR () > 150.0 Estimated GFR (Non- 137.0 BUN/Creatinine Ratio 9.3 (10-20) Calcium Level 8.5 mg/dl (8.5-10.1) Total Bilirubin 0.8 mg/dl (0.2-1) Aspartate Amino Transf (AST/SGOT) 19 U/L (15-37) Alanine Aminotransferase (ALT/SGPT) 96 U/L (12-78) Alkaline Phosphatase 109 U/L (45-117) Total Protein 6.4 gm/dl (6.4-8.2) Albumin 2.4 gm/dl (3.4-5.0) Globulin 4.0 gm/dl (2.5-4.0) Albumin/Globulin Ratio 0.6 (0.9-2) Last 24 Hours Test 10/28/16 08:37 White Blood Count 7.39 K/uL Red Blood Count 4.06 M/uL Hemoglobin 11.6 g/dL Hematocrit 35.5 % Mean Corpuscular Volume 87.4 fL Mean Corpuscular Hemoglobin 28.6 pg Mean Corpuscular Hemoglobin Concent 32.7 g/dl Platelet Count 237 K/uL Mean Platelet Volume 12.7 fL Neutrophils (%) (Auto) 61.9 % Lymphocytes (%) (Auto) 25.2 % Monocytes (%) (Auto) 10.3 % Eosinophils (%) (Auto) 1.8 % Basophils (%) (Auto) 0.5 % Neutrophils # (Auto) 4.58 K/uL Lymphocytes # (Auto) 1.86 K/uL Monocytes # (Auto) 0.76 K/uL Eosinophils # (Auto) 0.13 K/uL Basophils # (Auto) 0.04 K/uL RDW Standard Deviation 47.4 fL RDW Coefficient of Variation 14.7 % Immature Granulocyte % (Auto) 0.3 % Immature Granulocyte # (Auto) 0.02 K/uL Sodium Level 139 mmol/L Potassium Level 4.3 mmol/L Chloride Level 106 mmol/L Carbon Dioxide Level 25 mmol/L Anion Gap 8.0 mmol/L Blood Urea Nitrogen 4 mg/dl Creatinine 0.44 mg/dl Est Creatinine Clear Calc Drug Dose 196.1 ml/min Estimated GFR () > 150.0 Estimated GFR (Non- 137.0 BUN/Creatinine Ratio 9.3 Random Glucose 81 mg/dl Calcium Level 8.5 mg/dl Total Bilirubin 0.8 mg/dl Aspartate Amino Transf (AST/SGOT) 19 U/L Alanine Aminotransferase (ALT/SGPT) 96 U/L Alkaline Phosphatase 109 U/L Total Protein 6.4 gm/dl Albumin 2.4 gm/dl Globulin 4.0 gm/dl Albumin/Globulin Ratio 0.6 Assessment and Plan Pt is a 46 yo male with hx of SAH, tracheostomy and PEG tube who is nonverbal; with significant cognitive decline who presents with worsening sob and noted to be in sepsis, apparently issues at [facility] with being able to suction, proper trach care Sepsis from pneumonia-improving from a pulmonary standpoint one blood cx growing Gram + bacilli-->likely contaminant initially given Vanco, Zosyn, Levaquin. Vanco d/c'ed (MRSA swab neg). Never got Zosyn d/t allergy. Continue Levaquin new tracheostomy placed, #4 tracheostomy care, suctioning Altered mental status-?? pt reportedly was up all night and couldn't sleep If this does not improve, investigate other reasons such as neurologic cause vs metabolic cause Elevated troponin, NSTEMI vs demand ischemia vs perimyocarditis: cannot report any chest pain Echo with global hypokinesis EF 40-45%. Does not seem like an acute [place]. More of perimyocarditis picture. Hold off on tx as pt seems to be asymptomatic Continue metoprolol to coreg BID. Also start losartan 25 mg daily Cards following repeat echo in 2-3 months Chronic spasticity -cont dantrolene Hx of SAH stable Pt is FULL CODE DISPO -Unsure if the patient can go back to [facility]. May need to go somewhere more capable of tracheostomy care. This chart was completed in part utilizing [employer] Speech Voice Recognition software. Attempts were made to minimize the grammatical errors, random word insertions, pronoun errors and incomplete sentences. Any formal questions or concerns about the content, text or information contained within the body of this dictation should be directly addressed to the provider for clarification.
[2016-10-28] MEDS: LEVOFLOXACIN / D5W 750 MG in PREMIXED IN D5W 150 ML IV SCH (16:16)
[2016-10-29] VITALS (10 sets, daily range): BP systolic 101–122; BP diastolic 68–79; PULSE 89–103; TEMP 36.6–37.1; O2SAT 92–100
[2016-10-29] MEDS: BOOST VANILLA PEG SCH ×12 (00:01→20:13)
[2016-10-29] MEDS: LEVALBUTEROL 1.25MG/0.5ML NEB INH SCH ×4 (02:13→20:03)
[2016-10-29] MEDS: IPRATROPIUM BROMIDE NEB SOLN 0.02% 2.5 ML VIAL INH SCH ×4 (02:13→20:03)
[2016-10-29] MEDS: HEPARIN SOD 5000 UNIT/0.5 ML CARP SQ SCH ×3 (05:16→21:35)
[2016-10-29 07:02] LABS: BASO % 0.6 %; BASO ABS # 0.04 K/uL (0-0.2); COMPLETE YES; IG% 0.1 %; LYMPH % 28.6 %; MEAN CELL VOLUME 87.2 fL (80-100); MEAN CORPUSCULAR HEMOGLOBIN 27.7 pg (25-34); MEAN CORPUSCULAR HGB CONC 31.8 g/dl (32-36); MEAN PLATELET VOLUME 11.6 fL (7.4-10.4); MONO % 10.7 %; PLATELET COUNT 276 K/uL (130-400); RED BLOOD COUNT 4.47 M/uL (4.7-6.1); WHITE BLOOD COUNT 6.99 K/uL (4.8-10.8)
[2016-10-29 07:42] LABS: ALT/SGPT 91 U/L (12-78); AST/SGOT 23 U/L (15-37); BLOOD UREA NITROGEN 7 mg/dl (7-18); BUN/CREATININE RATIO 13.6 (10-20); CALCIUM 8.9 mg/dl (8.5-10.1); CARBON DIOXIDE 29 mmol/L (21-32); CHLORIDE 103 mmol/L (98-107); CREATININE 0.48 mg/dl (0.60-1.40); GLUCOSE 93 mg/dl (70-99); POTASSIUM 4.1 mmol/L (3.5-5.1); SODIUM 140 mmol/L (136-145)
[2016-10-29 07:44] LABS: ALB/GLOB RATIO 0.6 (0.9-2); ALKALINE PHOSPHATASE 121 U/L (45-117)
[2016-10-29] MEDS: CARVEDILOL 3.125 MG TAB PEG SCH ×2 (07:57→20:13)
[2016-10-29] MEDS: ASPIRIN 81 MG CHEW PO SCH (07:57)
[2016-10-29] MEDS: DANTROLENE SODIUM 25 MG CAP PO SCH (07:57)
[2016-10-29] MEDS: LOSARTAN POTASSIUM 25 MG TAB PEG SCH (07:58)
[2016-10-29] MEDS: AMANTADINE HCL 100 MG CAP PO SCH (07:58)
[2016-10-29] MEDS: POLYETHYLENE (MIRALAX) 17 GM PACK PEG SCH (07:58)
[2016-10-29] MEDS: FAMOTIDINE 20 MG TAB OG SCH (07:59)
[2016-10-29] MEDS: CHLORHEXIDINE GLUCONATE 0.12% 15 ML UDP MT SCH ×2 (08:51→21:32)
--- NOTE | 2016-10-29 16:29 | Hospitalist Progress Note ---
Hospitalist Progress Note Date of Service Oct 29, 2016. Subjective Pt evaluation today including: physical exam, chart review, lab review, review of inpatient medication list pt still drowsy. Nonverbal Additional Comments: Unable to perform-->nonverbal Objective Vital Signs Date Time Temp Pulse Resp B/P (MAP) Pulse Ox O2 Delivery O2 Flow Rate FiO2 10/29/16 15:33 37.0 100 16 101/68 (79) 93 Nasal Cannula 30 10/29/16 14:11 102 20 92 Trach Collar 30 10/29/16 12:26 36.9 94 16 116/74 (88) 96 Trach Collar 10/29/16 12:00 Humidified Air 11.0 30 Trach Collar 10/29/16 08:00 Humidified Air 11.0 30 Trach Collar 10/29/16 07:55 37.1 103 18 116/78 (91) 94 Trach Collar 10/29/16 07:28 92 20 98 Trach Collar 40 10/29/16 04:10 37.1 91 16 122/73 (89) 99 Trach Collar 10/29/16 04:00 Humidified Air 11.0 50 Trach Collar 10/29/16 02:13 89 18 99 Trach Collar 50 10/28/16 23:59 36.8 85 18 99/70 (80) 99 Trach Collar 50 10/28/16 23:59 Humidified Air 11.0 50 Trach Collar 10/28/16 20:00 Humidified Air 11.0 50 Trach Collar 10/28/16 19:36 37.3 96 19 104/63 (77) 99 Nasal Cannula 11.0 Humidified Air 10/28/16 19:27 89 18 99 Trach Collar 50 Physical Exam General Appearance: no apparent distress (sleeping in bed) ENT: + pertinent finding (trach in place. Some clear mucus noted) Neck: no JVD Respiratory/Chest: + pertinent finding (overall breath sounds are improved today. Some rhonchi noted at the bases.) Cardiovascular: regular rate, rhythm Abdomen: normal bowel sounds, non tender, soft Extremities: non-tender, no pedal edema Neurologic/Psychiatric: + pertinent finding (not responding to verbal stimuli. Does not follow commands. Left-sided hemiparesis noted) Skin: warm/dry Laboratory Results 10/29/16 06:43 Red Blood Count 4.47, Mean Corpuscular Volume 87.2, Mean Corpuscular Hemoglobin 27.7, Mean Corpuscular Hemoglobin Concent 31.8, Mean Platelet Volume 11.6, Neutrophils (%) (Auto) 58.0, Lymphocytes (%) (Auto) 28.6, Monocytes (%) (Auto) 10.7, Eosinophils (%) (Auto) 2.0, Basophils (%) (Auto) 0.6, Neutrophils # (Auto ) 4.05, Lymphocytes # (Auto) 2.00, Monocytes # (Auto) 0.75, Eosinophils # (Auto ) 0.14, Basophils # (Auto) 0.04 10/29/16 06:43 Test 10/29/16 06:43 White Blood Count 6.99 K/uL (4.8-10.8) Red Blood Count 4.47 M/uL (4.7-6.1) Hemoglobin 12.4 g/dL (14.0-18.0) Hematocrit 39.0 % (42-52) Mean Corpuscular Volume 87.2 fL (80-100) Mean Corpuscular Hemoglobin 27.7 pg (25-34) Mean Corpuscular Hemoglobin Concent 31.8 g/dl (32-36) Platelet Count 276 K/uL (130-400) Mean Platelet Volume 11.6 fL (7.4-10.4) Neutrophils (%) (Auto) 58.0 % Lymphocytes (%) (Auto) 28.6 % Monocytes (%) (Auto) 10.7 % Eosinophils (%) (Auto) 2.0 % Basophils (%) (Auto) 0.6 % Neutrophils # (Auto) 4.05 K/uL (1.4-6.5) Lymphocytes # (Auto) 2.00 K/uL (1.2-3.4) Monocytes # (Auto) 0.75 K/uL (0.11-0.59) Eosinophils # (Auto) 0.14 K/uL (0-0.5) Basophils # (Auto) 0.04 K/uL (0-0.2) RDW Standard Deviation 46.5 fL (36.4-46.3) RDW Coefficient of Variation 14.6 % (11.5-14.5) Immature Granulocyte % (Auto) 0.1 % Immature Granulocyte # (Auto) 0.01 K/uL (0.00-0.02) Anion Gap 8.0 mmol/L (3-11) Est Creatinine Clear Calc Drug Dose 176.5 ml/min Estimated GFR () > 150.0 Estimated GFR (Non- 132.2 BUN/Creatinine Ratio 13.6 (10-20) Calcium Level 8.9 mg/dl (8.5-10.1) Total Bilirubin 0.7 mg/dl (0.2-1) Aspartate Amino Transf (AST/SGOT) 23 U/L (15-37) Alanine Aminotransferase (ALT/SGPT) 91 U/L (12-78) Alkaline Phosphatase 121 U/L (45-117) Total Protein 7.2 gm/dl (6.4-8.2) Albumin 2.8 gm/dl (3.4-5.0) Globulin 4.4 gm/dl (2.5-4.0) Albumin/Globulin Ratio 0.6 (0.9-2) Last 24 Hours Test 10/29/16 06:43 White Blood Count 6.99 K/uL Red Blood Count 4.47 M/uL Hemoglobin 12.4 g/dL Hematocrit 39.0 % Mean Corpuscular Volume 87.2 fL Mean Corpuscular Hemoglobin 27.7 pg Mean Corpuscular Hemoglobin Concent 31.8 g/dl Platelet Count 276 K/uL Mean Platelet Volume 11.6 fL Neutrophils (%) (Auto) 58.0 % Lymphocytes (%) (Auto) 28.6 % Monocytes (%) (Auto) 10.7 % Eosinophils (%) (Auto) 2.0 % Basophils (%) (Auto) 0.6 % Neutrophils # (Auto) 4.05 K/uL Lymphocytes # (Auto) 2.00 K/uL Monocytes # (Auto) 0.75 K/uL Eosinophils # (Auto) 0.14 K/uL Basophils # (Auto) 0.04 K/uL RDW Standard Deviation 46.5 fL RDW Coefficient of Variation 14.6 % Immature Granulocyte % (Auto) 0.1 % Immature Granulocyte # (Auto) 0.01 K/uL Sodium Level 140 mmol/L Potassium Level 4.1 mmol/L Chloride Level 103 mmol/L Carbon Dioxide Level 29 mmol/L Anion Gap 8.0 mmol/L Blood Urea Nitrogen 7 mg/dl Creatinine 0.48 mg/dl Est Creatinine Clear Calc Drug Dose 176.5 ml/min Estimated GFR () > 150.0 Estimated GFR (Non- 132.2 BUN/Creatinine Ratio 13.6 Random Glucose 93 mg/dl Calcium Level 8.9 mg/dl Total Bilirubin 0.7 mg/dl Aspartate Amino Transf (AST/SGOT) 23 U/L Alanine Aminotransferase (ALT/SGPT) 91 U/L Alkaline Phosphatase 121 U/L Total Protein 7.2 gm/dl Albumin 2.8 gm/dl Globulin 4.4 gm/dl Albumin/Globulin Ratio 0.6 Assessment and Plan Pt is a 46 yo male with hx of SAH, tracheostomy and PEG tube who is nonverbal; with significant cognitive decline who presents with worsening sob and noted to be in sepsis, apparently issues at [facility] with being able to suction, proper trach care Sepsis from pneumonia-improving from a pulmonary standpoint one blood cx growing Gram + bacilli-->likely contaminant initially given Vanco, Zosyn, Levaquin. Vanco d/c'ed (MRSA swab neg). Never got Zosyn d/t allergy. Continue Levaquin for a total 10 day ABX course new tracheostomy placed, #4 tracheostomy care, suctioning Altered mental status-maybe exacerbated by meds--? Dantrolene dose too high might adjust dantrolene in AM Elevated troponin, NSTEMI vs demand ischemia vs perimyocarditis: cannot report any chest pain Cards consult appreciated Echo with global hypokinesis EF 40-45%. likely perimyocarditis. Hold off on tx as pt seems to be asymptomatic Continue coreg BID and losartan 25 mg daily Cards following repeat echo in 2-3 months Chronic spasticity -cont dantrolene (possibly reduced dose) Hx of SAH stable Pt is FULL CODE DISPO -back to [facility] likely in am-->then maybe transfer to [facility] This chart was completed in part utilizing [employer] Speech Voice Recognition software. Attempts were made to minimize the grammatical errors, random word insertions, pronoun errors and incomplete sentences. Any formal questions or concerns about the content, text or information contained within the body of this dictation should be directly addressed to the provider for clarification.
[2016-10-29] MEDS: LEVOFLOXACIN / D5W 750 MG in PREMIXED IN D5W 150 ML IV SCH (16:51)
[2016-10-30] VITALS (8 sets, daily range): BP systolic 107–118; BP diastolic 75–82; PULSE 91–104; TEMP 36.6–36.9; O2SAT 95–98
[2016-10-30] MEDS: BOOST VANILLA PEG SCH ×8 (00:19→11:29)
[2016-10-30] MEDS: LEVALBUTEROL 1.25MG/0.5ML NEB INH SCH ×2 (01:41→07:15)
[2016-10-30] MEDS: IPRATROPIUM BROMIDE NEB SOLN 0.02% 2.5 ML VIAL INH SCH ×2 (01:41→07:15)
[2016-10-30] MEDS: HEPARIN SOD 5000 UNIT/0.5 ML CARP SQ SCH (06:13)
[2016-10-30 06:55] LABS: HEPATITIS C RNA TMA QUAL Detected
--- NOTE | 2016-10-30 07:21 | DIAGNOSTIC IMAGING REPORT ---
SINGLE VIEW CHEST CLINICAL HISTORY: Sepsis. Tracheostomy removal by the patient. FINDINGS: An AP, portable, upright chest radiograph is compared to chest x-ray and chest CT dated 10/27/2016. The examination is degraded by portable technique and patient rotation. A tracheostomy is in place. The cardiomediastinal silhouette is unremarkable. The lungs and pleural spaces are clear. No pneumothorax is seen. The skeletal structures appear osteopenic. The bony thorax is grossly intact. A ventriculoperitoneal shunt catheter is identified. IMPRESSION: 1. A tracheostomy is in place. 2. The lungs appear clear. Lingular airspace opacities seen previously have improved. Electronically signed by: Yadiel May M.D. 10/30/2016 7:19 AM Dictated Date/Time: 10/30/2016 7:18 AM
[2016-10-30 07:45] LABS: BASO % 0.4 %; BASO ABS # 0.04 K/uL (0-0.2); COMPLETE YES; EOS % 1.6 %; HEMATOCRIT 41.2 % (42-52); IG% 0.1 %; LYMPH % 29.9 %; MEAN CELL VOLUME 85.8 fL (80-100); MEAN CORPUSCULAR HGB CONC 33.7 g/dl (32-36); MEAN PLATELET VOLUME 11.4 fL (7.4-10.4); MONO % 9.4 %; NEUT % 58.6 %; PLATELET COUNT 323 K/uL (130-400); WHITE BLOOD COUNT 9.03 K/uL (4.8-10.8)
[2016-10-30] MEDS: LOSARTAN POTASSIUM 25 MG TAB PEG SCH (08:09)
[2016-10-30] MEDS: CARVEDILOL 3.125 MG TAB PEG SCH (08:10)
[2016-10-30] MEDS: ASPIRIN 81 MG CHEW PO SCH (08:10)
[2016-10-30] MEDS: FAMOTIDINE 20 MG TAB OG SCH (08:10)
[2016-10-30] MEDS: POLYETHYLENE (MIRALAX) 17 GM PACK PEG SCH (08:10)
[2016-10-30] MEDS: AMANTADINE HCL 100 MG CAP PO SCH (08:11)
[2016-10-30] MEDS: CHLORHEXIDINE GLUCONATE 0.12% 15 ML UDP MT SCH (08:11)
[2016-10-30] MEDS: DANTROLENE SODIUM 25 MG CAP PO SCH (08:11)
[2016-10-30 08:45] LABS: BUN/CREATININE RATIO 15.3 (10-20); CREATININE 0.57 mg/dl (0.60-1.40); POTASSIUM 4.4 mmol/L (3.5-5.1)
[2016-10-30 08:47] LABS: ALB/GLOB RATIO 0.6 (0.9-2)
--- NOTE | 2016-10-30 09:10 | CARDIOLOGY PROGRESS NOTE ---
DATE: 10/30/2016 SUBJECTIVE: Mr. Alvarez is resting comfortably in bed without complaints of chest pain or dyspnea. OBJECTIVE: VITAL SIGNS: Blood pressure 117/82 with a regular pulse of 90. Respiratory rate is 16. The patient is afebrile at 36.9 degrees Celsius. Saturation is 95% on 30% FiO2. NECK: Supple with full carotid upstrokes. No obvious bruits. Jugular venous pressure is difficult to assess. Tracheostomy collar in place. CARDIOVASCULAR: Reveals a regular rhythm with normal S1 and S2. Heart sounds are distant. No obvious murmurs. No rubs. LUNGS: Clear without rales, rhonchi or wheezes. ABDOMEN: Soft, nontender, without bruits. PEG tube in place. EXTREMITIES: Reveal intact radial artery pulses bilaterally. There is no peripheral edema. DATA: CBC notes hemoglobin of 13.9, hematocrit 41.2, white count 9.0, platelet count 323,000. Electrolytes note sodium of 136, potassium 4.4, chloride of 100, bicarbonate 26, BUN 9, creatinine 0.57, glucose 97. front desk monitor is benign. IMPRESSION AND PLAN: 1. Elevated troponin -- suspect this could represent myopericarditis as there is mild left ventricle dysfunction, an elevated troponin, and EKG changes suggesting pericarditis. The patient is completely asymptomatic. Treatment questionable. 2. Mild left ventricular dysfunction -- could uptitrate carvedilol to 6.25 mg b.i.d. Continue losartan. We will recheck echocardiogram in 2-3 months. 3. Respiratory failure -- presumed pneumonia. 4. History of subarachnoid hemorrhage -- patient nonmobile and has a tracheostomy and PEG tube in place.
[2016-10-30] MEDS ORDERED: LEVO750T23 PEG (12:24)
[2016-10-30] MEDS ORDERED: CARV6.252 PO (12:24)
[2016-10-30] MEDS ORDERED: CZR25 PEG (12:24)
[2016-10-30] MEDS ORDERED: ASPCH81 PEG (12:24)
[2016-10-30] MEDS ORDERED: ATRINS INH (12:24)
[2016-10-30] MEDS ORDERED: XPNINS1255 INH (12:24)
--- NOTE | 2016-10-30 12:33 | Discharge Instructions ---
Discharge Instructions Date of Service Oct 30, 2016. Admission Reason for Admission: Sepsis Discharge Discharge Diagnosis / Problem: sepsis, PNA Discharge Goals Goal(s): Improve function, Therapeutic intervention Activity Recommendations Activity Level: Up Ad [place]ike . Additional Information Patient informed of condition: Yes Advance Directives: No DNR: No Level of Care: Other (correctional facility) Communicable Disease: No Prognosis: Stable Oxygen at (LPM): trach collar 11.0 FiO2 30 Meyer Catheter: No Instructions / Follow-Up Instructions / Follow-Up You have been treated in the hospital for sepsis and pneumonia likely secondary to insufficient tracheostomy care. It is very important to suction the patient on an as-needed basis. This will probably be every few hours given his current diagnosis of pneumonia and thick secretions. The following changes/additions have been made to your medication list: -Carvedilol 6.25 mg twice daily -Aspirin 81 mg daily -Losartan 25 mg daily -Levaquin 750 mg daily. Please finish the entire course. The patient will require cardiology follow-up up for a repeat echocardiogram for a diagnosis of perimyocarditis in 2-3 months. He also tested + for hepatitis C and will need GI follow up Please follow-up with the [facility] for any worsening medical condition D/C summary Pt is a 46 yo male with hx of SAH, tracheostomy and PEG tube who is nonverbal; with significant cognitive decline who presents with worsening sob and noted to be in sepsis, apparently issues at [facility] with being able to suction, proper trach care Sepsis from pneumonia- Admitted to telemetry Started on broad-spectrum antibiotics with vancomycin and Levaquin, which was narrowed to Levaquin IV Duo nebs scheduled every 6 hours Pulmonary consult Tracheostomy was replaced with a #4 Discharged on Levaquin 750 mg per PEG tube for an additional 5 days. Total antibiotic course 10 days trach suctioning every 4 hours Elevated troponin, NSTEMI vs demand ischemia vs perimyocarditis: Patient continued to deny any pain Cardiology consulted Echocardiogram reviewed With elevated troponin, echocardiogram findings and EKG--> likely perimyocarditis. Given that this is asymptomatic, no treatment was recommended Patient will need a repeat echocardiogram in 2-3 months He was started on losartan 25 mg daily, aspirin 81 mg daily, Coreg 6.25 mg twice daily Chronic spasticity cont dantrolene Hx of SAH stable PT WAS STARTED ON AN ASA 81 DAILY FOR CARDIAC PROTECTION. this should be monitored for any further signs of bleeding Pt is FULL CODE DISPO -back to [facility] likely in am-->then maybe transfer to [facility] for more intense trach care This chart was completed in part utilizing [employer] Speech Voice Recognition software. Attempts were made to minimize the grammatical errors, random word insertions, pronoun errors and incomplete sentences. Any formal questions or concerns about the content, text or information contained within the body of this dictation should be directly addressed to the provider for clarification. Current Hospital Diet Patient's current hospital diet: Discharge Diet Recommended Diet: N/A (boost can per PEG tube 7 times daily with free water flushes of 50 ML's every 4 hours.) Procedures Procedures Performed: Tracheostomy was replaced with a #4 echo Left Ventricle The left ventricle is grossly normal size. Ejection Fraction = 40-45%. There is mild global hypokinesis of the left ventricle. Right Ventricle The right ventricle is grossly normal size. The right ventricular systolic function is normal as assessed by tricuspid annular plane systolic excursion (TAPSE) (normal >1.5 cm). Atria Borderline left atrial enlargement. Right atrial size is normal. No ASD detected; PFO is not assessed. Mitral Valve The mitral valve is grossly normal. There is no mitral valve stenosis. There is trace mitral regurgitation. Tricuspid Valve The tricuspid valve is not well visualized, but is grossly normal. There is no tricuspid stenosis. Significant tricuspid regurgitation is absent. Aortic Valve The aortic valve opens well. The aortic valve is trileaflet. No hemodynamically significant valvular aortic stenosis. There is no significant aortic regurgitation. Pulmonic Valve The pulmonary valve is inadequately visualized, but the Doppler data is adequate for interpretation. Pulmonic stenosis is absent. Trace pulmonic valvular regurgitation. Great Vessels The aortic root and proximal ascending aorta are normal sized. Pericardium/Pleural There is no pericardial effusion. Great Vessels Normal inferior vena cava size and collapsability with sniff indicates a normal right atrial pressure of 3 mmHg Pending Studies Studies pending at discharge: no Physician Orders On Transfer POLST Discussion: without POLST completion Laboratory Results 10/30/16 07:35 Red Blood Count 4.80, Mean Corpuscular Volume 85.8, Mean Corpuscular Hemoglobin 29.0, Mean Corpuscular Hemoglobin Concent 33.7, Mean Platelet Volume 11.4, Neutrophils (%) (Auto) 58.6, Lymphocytes (%) (Auto) 29.9, Monocytes (%) (Auto) 9.4, Eosinophils (%) (Auto) 1.6, Basophils (%) (Auto) 0.4, Neutrophils # (Auto) 5.29, Lymphocytes # (Auto) 2.70, Monocytes # (Auto) 0.85, Eosinophils # (Auto) 0.14, Basophils # (Auto) 0.04 10/30/16 07:35 Test 10/30/16 07:35 White Blood Count 9.03 K/uL (4.8-10.8) Red Blood Count 4.80 M/uL (4.7-6.1) Hemoglobin 13.9 g/dL (14.0-18.0) Hematocrit 41.2 % (42-52) Mean Corpuscular Volume 85.8 fL (80-100) Mean Corpuscular Hemoglobin 29.0 pg (25-34) Mean Corpuscular Hemoglobin Concent 33.7 g/dl (32-36) Platelet Count 323 K/uL (130-400) Mean Platelet Volume 11.4 fL (7.4-10.4) Neutrophils (%) (Auto) 58.6 % Lymphocytes (%) (Auto) 29.9 % Monocytes (%) (Auto) 9.4 % Eosinophils (%) (Auto) 1.6 % Basophils (%) (Auto) 0.4 % Neutrophils # (Auto) 5.29 K/uL (1.4-6.5) Lymphocytes # (Auto) 2.70 K/uL (1.2-3.4) Monocytes # (Auto) 0.85 K/uL (0.11-0.59) Eosinophils # (Auto) 0.14 K/uL (0-0.5) Basophils # (Auto) 0.04 K/uL (0-0.2) RDW Standard Deviation 45.1 fL (36.4-46.3) RDW Coefficient of Variation 14.5 % (11.5-14.5) Immature Granulocyte % (Auto) 0.1 % Immature Granulocyte # (Auto) 0.01 K/uL (0.00-0.02) Anion Gap 10.0 mmol/L (3-11) Est Creatinine Clear Calc Drug Dose 149.3 ml/min Estimated GFR () 142.7 Estimated GFR (Non- 123.1 BUN/Creatinine Ratio 15.3 (10-20) Calcium Level 9.0 mg/dl (8.5-10.1) Total Bilirubin 0.6 mg/dl (0.2-1) Aspartate Amino Transf (AST/SGOT) 28 U/L (15-37) Alanine Aminotransferase (ALT/SGPT) 79 U/L (12-78) Alkaline Phosphatase 119 U/L (45-117) Total Protein 7.5 gm/dl (6.4-8.2) Albumin 2.9 gm/dl (3.4-5.0) Globulin 4.6 gm/dl (2.5-4.0) Albumin/Globulin Ratio 0.6 (0.9-2) Medical Emergencies . Who to Call and When: Medical Emergencies: If at any time you feel your situation is an emergency, please call 911 immediately. . Non-Emergent Contact Non-Emergency issues call your: Primary Care Provider . Past History Medical & Surgical History: (1) History of subarachnoid hemorrhage (2) Sepsis (3) Pneumonia (4) Hypoxia (5) Fever (6) Elevated troponin . "Provider Documentation" section prepared by Bria Green . Core Measure Problem Core Measures: None
--- NOTE | 2016-10-30 12:41 | Discharge Summary ---
Discharge Summary Date of Service Oct 30, 2016. Discharge Summary Admission Date: Oct 25, 2016 at 17:19 Discharge Date: Oct 30, 2016 Discharge Disposition: [facility] facility ([facility]) Principal Diagnosis: sepsis, pneumonia Problems/Secondary Diagnoses: (1) History of subarachnoid hemorrhage Status: Chronic Procedures: Tracheostomy was replaced with a #4 Echocardiogram see discharge instructions for details. Consultations: Cardiology Medication Reconciliation New Medications: Carvedilol (Coreg) 6.25 Mg Tab 1 TAB PO BID for 30 Days, #60 TAB 5 Refills Levofloxacin (Levaquin) 750 Mg Tab 1 TAB PEG DAILY for 5 Days, #5 TAB Aspirin (Aspirin Low Strength) 81 Mg Chew 81 MG PEG QAM for 30 Days Ipratropium [place] (Ipratropium [place]) 0.5 Mg/2.5 Ml Nebu 0.5 MG INH Q6 PRN for Shortness of Breath MDD 4 for 30 Days, #120 DOSE Levalbuterol (Levalbuterol) 1.25 Mg/0.5 Ml Nebu 1.25 MG INH Q6R PRN for Shortness of Breath MDD 4 for 30 Days, #120 DOSE Losartan Potassium (Losartan Potassium) 25 Mg Tab 25 MG PEG QAM for 30 Days, #30 TAB Continued Medications: Acetaminophen (Tylenol) 325 Mg Tab 650 MG PEG QID PRN for Pain Amantadine Hcl (Amantadine Hcl) 100 Mg Cap 100 MG PEG DAILY, CAP Chlorhexidine Gluconate (Peridex Oral Soln) 480 Ml Soln 15 ML MT BID, BTL Dantrolene Sodium (Dantrium) 25 Mg Cap 25 MG PO DAILY Famotidine (Pepcid) 20 Mg Tab 20 MG PEG DAILY, TAB Magnesium Hydroxide (Milk Of Magnesia) 30 Ml Susp 30 ML PO DAILY PRN for PRN, ML Nutritional Supplements (Boost) 1 Liq Liq 1 CAN PEG Q4 GIVEN THRU A PUMP AT [facility] Nystatin (Topical) ([facility]) 100,000 Unit/Gm Pow 1 APPLN TOP DAILY Polyethylene Glycol 3350 (Peg 3350) 1 Pow Pow 1 DOSE PEG DAILY Senna (Senokot) 8.6 Mg Tab 17.2 TAB PEG BID Discharge Exam Patient remains nonverbal, but more awake today. He shakes his head no when asked if he isn't any pain. His breathing is at baseline. Physical Exam: General Appearance: no apparent distress Eyes: EOMI Neck: no JVD Respiratory/Chest: + pertinent finding (few rhonchi at the bases, much improved) Cardiovascular: regular rate, rhythm Abdomen / GI: normal bowel sounds, non tender, soft Extremities: no calf tenderness, no pedal edema Neurologic/Psychiatric: alert (follows basic commands today.) Skin: warm/dry Hospital Course Pt is a 46 yo male with hx of SAH, tracheostomy and PEG tube who is nonverbal; with significant cognitive decline who presents with worsening sob and noted to be in sepsis, apparently issues at [facility] with being able to suction, proper trach care Sepsis from pneumonia- Admitted to telemetry Started on broad-spectrum antibiotics with vancomycin and Levaquin, which was narrowed to Levaquin IV Duo nebs scheduled every 6 hours Pulmonary consult Tracheostomy was replaced with a #4 Discharged on Levaquin 750 mg per PEG tube for an additional 5 days. Total antibiotic course 10 days trach suctioning every 4 hours Elevated troponin, NSTEMI vs demand ischemia vs perimyocarditis: Patient continued to deny any pain Cardiology consulted Echocardiogram reviewed With elevated troponin, echocardiogram findings and EKG--> likely perimyocarditis. Given that this is asymptomatic, no treatment was recommended Patient will need a repeat echocardiogram in 2-3 months He was started on losartan 25 mg daily, aspirin 81 mg daily, Coreg 6.25 mg twice daily Chronic spasticity cont dantrolene Likely Hep C + will need f/u with GI as an outpt Hx of SAH stable PT WAS STARTED ON AN ASA 81 DAILY FOR CARDIAC PROTECTION. this should be monitored for any further signs of bleeding Pt is FULL CODE DISPO -back to [facility] in am-->then maybe transfer to [facility] for more intense trach care This chart was completed in part utilizing [employer] Speech Voice Recognition software. Attempts were made to minimize the grammatical errors, random word insertions, pronoun errors and incomplete sentences. Any formal questions or concerns about the content, text or information contained within the body of this dictation should be directly addressed to the provider for clarification. Total Time Spent: Greater than 30 minutes This includes examination of the patient, discharge planning, medication reconciliation, and communication with other providers. Discharge Instructions Please refer to the electronic Patient Visit Report (Discharge Instructions) for additional information. Follow-Up GI within 1 month Cardiology 2-3 months Additional Copies To Gerardo Aguirre M.D.
== END 2016-10-30 14:50 | disposition home or self-care (01) | DRG 871 ==
LOC: EDSEX 14:51 → C.EDC 14:54 → C.2T 17:19 → ENRESERV 17:32
PROVIDERS: ADMIT Hospitalist; ATTEND Hospitalist
PROC: 0B21XFZ Change Tracheostomy Device in Trachea, External Approach (ICD-10-PCS; principal; 2016-10-30)
DX: A41.9 Sepsis, unspecified organism (principal); R68.89 Other general symptoms and signs; J18.9 Pneumonia, unspecified organism; J95.03 Malfunction of tracheostomy stoma; E87.2 Acidosis; I60.9 Nontraumatic subarachnoid hemorrhage, unspecified; J96.90 Respiratory failure, unspecified, unspecified whether with hypoxia or hypercapnia; I21.4 Non-ST elevation (NSTEMI) myocardial infarction; I51.4 Myocarditis, unspecified; I24.8 Other forms of acute ischemic heart disease; J98.09 Other diseases of bronchus, not elsewhere classified; Z93.1 Gastrostomy status